=== PATIENT | female | born 1940 | race Caucasian/White ===

== ENCOUNTER → 2016-06-24 | Outpatient (CLI) | payer MEDICARE ==
[2016-06-24 19:10] LABS: MEAN CORPUSCULAR HEMOGLOBIN 32.7 pg (27.0-33.0); MEAN CORPUSCULAR HGB CONC 34.1 g/dl (32.0-36.5); MEAN CORPUSCULAR VOLUME 95.9 fl (80.0-96.0); RED CELL DISTRIBUTION WIDTH 14.4 % (11.5-14.5); WHITE BLOOD COUNT 8.4 K/mm3 (4.0-10.0)
[2016-06-24 19:20] LABS: INR 2.42
[2016-06-24 19:22] LABS: ALBUMIN 3.7 GM/DL (3.2-5.2); ALBUMIN/GLOBULIN RATIO 1.32 (1.00-1.93); BILIRUBIN,TOTAL 0.3 MG/DL (0.2-1.0); CALCIUM LEVEL 8.8 MG/DL (8.8-10.2); CREATININE FOR GFR 1.36 MG/DL (0.55-1.02); GLOMERULAR FILTRATION RATE 40.4 (>39); TOTAL PROTEIN 6.5 GM/DL (6.4-8.2)
[2016-06-26 10:23] LABS: FOLATE 19.6 NG/ML (>5.4)
== END ==
LOC: M WUC 10:23
PROVIDERS: ATTEND Nurse Practitioner Family
DX: Z86.711 Personal history of pulmonary embolism (principal); I10 Essential (primary) hypertension; E78.00 Pure hypercholesterolemia, unspecified; E55.9 Vitamin D deficiency, unspecified; E11.9 Type 2 diabetes mellitus without complications

== ENCOUNTER → 2016-08-05 | Outpatient (CLI) | payer MEDICARE ==
[2016-08-05 14:34] LABS: INR 2.81
== END ==
LOC: M WUC 10:48
PROVIDERS: ATTEND Internal Medicine
DX: Z86.711 Personal history of pulmonary embolism (principal)

== ENCOUNTER → 2016-09-09 | Outpatient (CLI) | payer MEDICARE ==
[2016-09-09 18:13] LABS: INR 2.26
[2016-09-09 18:24] LABS: BLOOD UREA NITROGEN 22 MG/DL (7-18); CREATININE FOR GFR 1.25 MG/DL (0.55-1.02); GLOMERULAR FILTRATION RATE 44.5 (>39); GLUCOSE, FASTING 170 MG/DL (83-110)
[2016-09-09 18:25] LABS: ALBUMIN 3.9 GM/DL (3.2-5.2); ALKALINE PHOSPHATASE 86 U/L (45-117); ALT/SGPT 44 U/L (12-78); ANION GAP 9 MEQ/L (8-16); AST/SGOT 40 U/L (15-37); BILIRUBIN,TOTAL 0.4 MG/DL (0.2-1.0); CALCIUM LEVEL 9.8 MG/DL (8.8-10.2); CARBON DIOXIDE LEVEL 27 MEQ/L (21-32); CHLORIDE LEVEL 105 MEQ/L (98-107); CHOLESTEROL LEVEL 147 MG/DL (<200); POTASSIUM SERUM 3.9 MEQ/L (3.5-5.1); SODIUM LEVEL 141 MEQ/L (136-145); TOTAL PROTEIN 6.9 GM/DL (6.4-8.2); TRIGLYCERIDES LEVEL 443 MG/DL (<150)
[2016-09-09 18:56] LABS: MEAN CORPUSCULAR HEMOGLOBIN 32.3 pg (27.0-33.0); MEAN CORPUSCULAR HGB CONC 33.6 g/dl (32.0-36.5); MEAN CORPUSCULAR VOLUME 96.3 fl (80.0-96.0); RED CELL DISTRIBUTION WIDTH 13.4 % (11.5-14.5); WHITE BLOOD COUNT 6.2 K/mm3 (4.0-10.0)
== END ==
LOC: M WUC 10:03
PROVIDERS: ATTEND Nurse Practitioner Family
DX: E78.00 Pure hypercholesterolemia, unspecified (principal); I10 Essential (primary) hypertension; E55.9 Vitamin D deficiency, unspecified; I26.99 Other pulmonary embolism without acute cor pulmonale; Z79.899 Other long term (current) drug therapy

== ENCOUNTER → 2016-10-28 | Outpatient (CLI) | payer MEDICARE ==
[2016-10-28 18:32] LABS: INR 2.3
== END ==
LOC: M WUC 10:47
PROVIDERS: ATTEND Nurse Practitioner Family
DX: Z79.01 Long term (current) use of anticoagulants (principal); Z86.711 Personal history of pulmonary embolism

== ENCOUNTER → 2017-01-15 | Outpatient (CLI) | payer MEDICARE ==
[2017-01-15 13:24] LABS: INR 2.16
== END ==
LOC: M WUC 10:30
PROVIDERS: ATTEND Nurse Practitioner Family
DX: Z79.01 Long term (current) use of anticoagulants (principal)

== ENCOUNTER → 2017-02-06 | Outpatient (CLI) | payer MEDICARE ==
[2017-02-06 18:02] LABS: ALBUMIN 3.8 GM/DL (3.2-5.2); ALBUMIN/GLOBULIN RATIO 1.31 (1.00-1.93); BILIRUBIN,TOTAL 0.4 MG/DL (0.2-1.0); CREATININE FOR GFR 1.43 MG/DL (0.55-1.02); GLOMERULAR FILTRATION RATE 38.1 (>39); POTASSIUM SERUM 3.8 MEQ/L (3.5-5.1); TOTAL PROTEIN 6.7 GM/DL (6.4-8.2)
[2017-02-06 19:00] LABS: MEAN CORPUSCULAR HEMOGLOBIN 32.7 pg (27.0-33.0); MEAN CORPUSCULAR VOLUME 96.1 fl (80.0-96.0); RED CELL DISTRIBUTION WIDTH 13.7 % (11.5-14.5); WHITE BLOOD COUNT 6.3 K/mm3 (4.0-10.0)
== END ==
LOC: M WUC 10:39
PROVIDERS: ATTEND Nurse Practitioner Family
DX: E78.5 Hyperlipidemia, unspecified (principal); I10 Essential (primary) hypertension

== ENCOUNTER → 2017-02-19 | Outpatient (CLI) | payer MEDICARE ==
[2017-02-19 17:59] LABS: INR 2.52
== END ==
LOC: M WUC 10:46
PROVIDERS: ATTEND Internal Medicine Cardiovascular Disease
DX: I48.91 Unspecified atrial fibrillation (principal); E11.9 Type 2 diabetes mellitus without complications; Z79.01 Long term (current) use of anticoagulants

== ENCOUNTER → 2017-06-01 | Outpatient (CLI) | payer MEDICARE ==
[2017-06-01 09:04] LABS: HEMATOCRIT 43.9 % (36.0-47.0); HEMOGLOBIN 15.1 g/dl (12.0-16.0); MEAN CORPUSCULAR HEMOGLOBIN 32.6 pg (27.0-33.0); MEAN CORPUSCULAR HGB CONC 34.4 g/dl (32.0-36.5); MEAN CORPUSCULAR VOLUME 94.8 fl (80.0-96.0); PLATELET COUNT, AUTOMATED 257 10^3/uL (150-450); RED BLOOD COUNT 4.63 10^6/uL (4.00-5.40); RED CELL DISTRIBUTION WIDTH 13.2 % (11.5-14.5); WHITE BLOOD COUNT 6.9 10^3/uL (4.0-10.0)
[2017-06-01 09:24] LABS: ALBUMIN 3.8 GM/DL (3.2-5.2); ALBUMIN/GLOBULIN RATIO 1.23 (1.00-1.93); ALKALINE PHOSPHATASE 61 U/L (45-117); ALT/SGPT 38 U/L (12-78); ANION GAP 7 MEQ/L (8-16); AST/SGOT 41 U/L (7-37); BILIRUBIN,TOTAL 0.4 MG/DL (0.2-1.0); BLOOD UREA NITROGEN 13 MG/DL (7-18); CALCIUM LEVEL 8.8 MG/DL (8.8-10.2); CARBON DIOXIDE LEVEL 31 MEQ/L (21-32); CHLORIDE LEVEL 105 MEQ/L (98-107); CHOLESTEROL LEVEL 152 MG/DL (<200); CPK CREATINE PHOSPHOKINASE 80 U/L (26-192); CREATININE FOR GFR 1.13 MG/DL (0.55-1.02); GLOMERULAR FILTRATION RATE 49.8 (>39); GLUCOSE, FASTING 128 MG/DL (83-110); HDL CHOLESTEROL 38 MG/DL (>40); INR 1.85; LDL CHOLESTEROL 68.6 MG/DL (<100); NON-HDL-C 114 MG/DL; PROTHROMBIN TIME 21.9 SECONDS (12.4-14.5); SODIUM LEVEL 143 MEQ/L (136-145); TOTAL PROTEIN 6.9 GM/DL (6.4-8.2); TRIGLYCERIDES LEVEL 227 MG/DL (<150)
[2017-06-01 09:33] LABS: MALB URINE SIEMENS 10.9 MG/L; MAU/CREAT RATIO 8.1 MCG/MG (0.0-30.0)
[2017-06-01 09:49] LABS: ESTIMATED AVERAGE GLUCOSE 137 MG/DL (60-110); HEMOGLOBIN A1c 6.4 %
== END ==
LOC: M WUC 08:02
DX: D64.9 Anemia, unspecified (principal); I10 Essential (primary) hypertension; E78.5 Hyperlipidemia, unspecified; I48.91 Unspecified atrial fibrillation; E11.9 Type 2 diabetes mellitus without complications
CPT/HCPCS: 82550

== ENCOUNTER → 2017-10-14 | Outpatient (CLI) | payer MEDICARE ==
[2017-10-14 17:29] LABS: INR 2.42; PROTHROMBIN TIME 27.3 SECONDS (12.4-14.5)
== END ==
LOC: M WUC 13:39
DX: Z79.01 Long term (current) use of anticoagulants (principal); Z86.711 Personal history of pulmonary embolism
CPT/HCPCS: 85610

== ENCOUNTER → 2017-12-01 | Outpatient (CLI) | payer MEDICARE ==
[2017-12-01 12:51] LABS: HEMATOCRIT 42.4 % (36.0-47.0); HEMOGLOBIN 14.4 g/dl (12.0-15.5); MEAN CORPUSCULAR HEMOGLOBIN 32.5 pg (27.0-33.0); MEAN CORPUSCULAR VOLUME 95.7 fl (80.0-96.0); PLATELET COUNT, AUTOMATED 218 10^3/uL (150-450); RED BLOOD COUNT 4.43 10^6/uL (4.00-5.40); RED CELL DISTRIBUTION WIDTH 13.3 % (11.5-14.5); WHITE BLOOD COUNT 6.7 10^3/uL (4.0-10.0)
[2017-12-01 13:00] LABS: INR 2.24; PROTHROMBIN TIME 25.2 SECONDS (12.1-14.4)
[2017-12-01 13:06] LABS: ESTIMATED AVERAGE GLUCOSE 140 MG/DL (60-110); HEMOGLOBIN A1c 6.5 %
[2017-12-01 13:08] LABS: ALBUMIN 3.8 GM/DL (3.2-5.2); ALBUMIN/GLOBULIN RATIO 1.36 (1.00-1.93); ALKALINE PHOSPHATASE 67 U/L (45-117); ALT/SGPT 37 U/L (12-78); ANION GAP 7 MEQ/L (8-16); AST/SGOT 32 U/L (7-37); BILIRUBIN,TOTAL 0.4 MG/DL (0.2-1.0); BLOOD UREA NITROGEN 20 MG/DL (7-18); CALCIUM LEVEL 8.6 MG/DL (8.8-10.2); CARBON DIOXIDE LEVEL 28 MEQ/L (21-32); CHLORIDE LEVEL 106 MEQ/L (98-107); CHOLESTEROL LEVEL 155 MG/DL (<200); CHOLESTEROL RISK RATIO 4.696 (<5); CPK CREATINE PHOSPHOKINASE 121 U/L (26-192); CREATININE FOR GFR 1.29 MG/DL (0.55-1.30); FREE T4 0.94 NG/DL (0.76-1.46); GLOMERULAR FILTRATION RATE 42.8 (>39); GLUCOSE, FASTING 123 MG/DL (70-100); HDL CHOLESTEROL 33 MG/DL (>40); LDL CHOLESTEROL 72.6 MG/DL (<100); NON-HDL-C 122 MG/DL; POTASSIUM SERUM 4.7 MEQ/L (3.5-5.1); SODIUM LEVEL 141 MEQ/L (136-145); TOTAL PROTEIN 6.6 GM/DL (6.4-8.2); TRIGLYCERIDES LEVEL 247 MG/DL (<150)
[2017-12-01 13:29] LABS: CREATININE, URINE 68.3 MG/DL; MALB URINE SIEMENS 8.2 MG/L
== END ==
LOC: M WUC 11:03
DX: Z86.711 Personal history of pulmonary embolism (principal); E78.00 Pure hypercholesterolemia, unspecified; E11.9 Type 2 diabetes mellitus without complications; I10 Essential (primary) hypertension
CPT/HCPCS: 82550

== ENCOUNTER → 2018-02-19 | Outpatient (CLI) | payer MEDICARE ==
[2018-02-19 13:21] LABS: INR 1.79; PROTHROMBIN TIME 21.1 SECONDS (12.1-14.4)
== END ==
LOC: M WUC 10:21
DX: Z79.01 Long term (current) use of anticoagulants (principal); Z86.711 Personal history of pulmonary embolism
CPT/HCPCS: 85610

== ENCOUNTER → 2018-03-09 | Outpatient (CLI) | payer MEDICARE ==
[2018-03-09 20:11] LABS: HEMATOCRIT 43.2 % (36.0-47.0); HEMOGLOBIN 14.6 g/dl (12.0-15.5); MEAN CORPUSCULAR HEMOGLOBIN 32.9 pg (27.0-33.0); MEAN CORPUSCULAR HGB CONC 33.8 g/dl (32.0-36.5); MEAN CORPUSCULAR VOLUME 97.3 fl (80.0-96.0); PLATELET COUNT, AUTOMATED 235 10^3/uL (150-450); RED BLOOD COUNT 4.44 10^6/uL (4.00-5.40); RED CELL DISTRIBUTION WIDTH 13.2 % (11.5-14.5)
[2018-03-09 20:13] LABS: CREATININE, URINE 25.6 MG/DL; MALB URINE SIEMENS < 5.0 MG/L
[2018-03-09 20:19] LABS: MAU/CREAT RATIO 19.5 MCG/MG (0.0-30.0)
[2018-03-09 20:35] LABS: ESTIMATED AVERAGE GLUCOSE 131 MG/DL (60-110); HEMOGLOBIN A1c 6.2 %
[2018-03-09 20:39] LABS: ALBUMIN 3.8 GM/DL (3.2-5.2); ALBUMIN/GLOBULIN RATIO 1.15 (1.00-1.93); ALKALINE PHOSPHATASE 66 U/L (45-117); ALT/SGPT 28 U/L (12-78); ANION GAP 10 MEQ/L (8-16); AST/SGOT 28 U/L (7-37); BILIRUBIN,TOTAL 0.4 MG/DL (0.2-1.0); BLOOD UREA NITROGEN 22 MG/DL (7-18); CALCIUM LEVEL 8.6 MG/DL (8.8-10.2); CARBON DIOXIDE LEVEL 27 MEQ/L (21-32); CHLORIDE LEVEL 103 MEQ/L (98-107); CHOLESTEROL LEVEL 161 MG/DL (<200); CPK CREATINE PHOSPHOKINASE 116 U/L (26-192); CREATININE FOR GFR 1.29 MG/DL (0.55-1.30); GLOMERULAR FILTRATION RATE 42.8 (>39); GLUCOSE, FASTING 92 MG/DL (70-100); HDL CHOLESTEROL 35 MG/DL (>40); LDL CHOLESTEROL 56 MG/DL (<100); NON-HDL-C 126 MG/DL; POTASSIUM SERUM 4.4 MEQ/L (3.5-5.1); SODIUM LEVEL 140 MEQ/L (136-145); TOTAL PROTEIN 7.1 GM/DL (6.4-8.2); TRIGLYCERIDES LEVEL 348 MG/DL (<150)
== END ==
LOC: M WUC 12:04
DX: I10 Essential (primary) hypertension (principal); E11.9 Type 2 diabetes mellitus without complications; E78.00 Pure hypercholesterolemia, unspecified
CPT/HCPCS: 82550

== ENCOUNTER → 2018-08-22 | Outpatient (CLI) | payer MEDICARE ==
[2018-08-22 13:25] LABS: ALBUMIN 3.7 GM/DL (3.2-5.2); BILIRUBIN,TOTAL 0.4 MG/DL (0.2-1.0); CALCIUM LEVEL 9.1 MG/DL (8.8-10.2); CHOLESTEROL RISK RATIO 5.121 (<5); CREATININE FOR GFR 1.16 MG/DL (0.55-1.30); FREE T4 1.1 NG/DL (0.76-1.46); GLOMERULAR FILTRATION RATE 48.2 (>39); POTASSIUM SERUM 4.2 MEQ/L (3.5-5.1); THYROID STIMULATING HORMONE 1.97 uIU/ML (0.358-3.740); TOTAL PROTEIN 6.6 GM/DL (6.4-8.2)
[2018-08-22 13:39] LABS: HEMOGLOBIN A1c 6.5 %
[2018-08-22 14:49] LABS: BASO # 0.1 10^3/uL (0.0-0.2); BASO % 1.3 % (0.0-1.0); EOS # 0.3 10^3/uL (0.0-0.50); EOS % 5.6 % (0.0-3.0); HEMATOCRIT 43.1 % (36.0-47.0); HEMOGLOBIN 14.7 g/dl (12.0-15.5); LYMPH # 1.7 10^3/uL (1.5-4.5); LYMPH % 29.9 % (24.0-44.0); MEAN CORPUSCULAR HEMOGLOBIN 33.6 pg (27.0-33.0); MEAN CORPUSCULAR HGB CONC 34.1 g/dl (32.0-36.5); MEAN CORPUSCULAR VOLUME 98.4 fl (80.0-96.0); MONO # 0.5 10^3/uL (0.0-0.8); MONO % 8.1 % (0.0-5.0); NEUTROPHILS % 54.6 % (36.0-66.0); PLATELET COUNT, AUTOMATED 224 10^3/uL (150-450); RED BLOOD COUNT 4.38 10^6/uL (4.00-5.40); WHITE BLOOD COUNT 5.6 10^3/uL (4.0-10.0)
== END ==
LOC: M WUC 08:29
PROVIDERS: ATTEND Physician Assistant Medical
DX: R53.83 Other fatigue (principal); I10 Essential (primary) hypertension; E78.2 Mixed hyperlipidemia; E11.9 Type 2 diabetes mellitus without complications

== ENCOUNTER 2018-11-06 17:43 | Emergency (ER) | payer MEDICARE ==
[~2018-11-06] VITALS: Ht 157.5 cm; Wt 95.0 kg
[2018-11-06 18:13] LABS: BASO % 0.5 % (0.0-1.0); EOS # 0.1 10^3/uL (0.0-0.50); EOS % 1.8 % (0.0-3.0); HEMATOCRIT 42.9 % (36.0-47.0); LYMPH # 1.8 10^3/uL (1.5-4.5); LYMPH % 23.2 % (24.0-44.0); MEAN CORPUSCULAR HEMOGLOBIN 35.1 pg (27.0-33.0); MEAN CORPUSCULAR VOLUME 100.5 fl (80.0-96.0); MONO # 0.6 10^3/uL (0.0-0.8); MONO % 8.3 % (0.0-5.0); NEUTROPHILS % 65.5 % (36.0-66.0); PLATELET COUNT, AUTOMATED 221 10^3/uL (150-450); RED BLOOD COUNT 4.27 10^6/uL (4.00-5.40); WHITE BLOOD COUNT 7.6 10^3/uL (4.0-10.0)
--- NOTE | 2018-11-06 18:19 | REP ---
Chest one-view HISTORY: Chest pain Comparison: None The lungs are clear. The heart is normal in size. The pulmonary vasculature is normal in appearance. Impression: No acute disease. Electronically Signed by Cleveland Wilkerson MD 11/06/2018 06:10 P
[2018-11-06 18:23] LABS: INR 1.23; PROTHROMBIN TIME 15.7 SECONDS (12.1-14.4)
[2018-11-06] MEDS ORDERED: KETOROLAC 30 MG/ML VIAL (J1885) IM ONE (18:30)
[2018-11-06] MEDS ORDERED: diazePAM 10 MG TAB PO ONE (18:30)
[2018-11-06] MEDS ORDERED: SOMA350T PO (18:37)
[2018-11-06] MEDS ORDERED: NAPR-837 PO (18:37)
--- NOTE | 2018-11-06 18:39 | ECGEPIP ---
[facility] - ED Test Date: 2018-11-06 Pat Name: IDRIS KHANNA Department: Room: - Gender: Female Manager Voice: JTheron : [id number] Requested By: Halle Reyes Order Number: [id number] Reading MD: Halle Reyes Measurements Intervals [place] Rate: 96 P: 35 CA: 165 QRS: 16 QRSD: 85 T: 34 QT: 359 QTc: 456 Interpretive Statements SINUS RHYTHM NSTTW abnormalities NO PRIOR FOR COMPARISON Electronically Signed on 11-06-2018 18:38:40 EDT by Halle Reyes
[2018-11-06] MEDS ORDERED: KETOROLAC 30 MG/ML VIAL (J1885) IV ONE (18:45)
[2018-11-06 18:49] LABS: ALBUMIN 3.9 GM/DL (3.2-5.2); ALT/SGPT 31 U/L (12-78); BILIRUBIN,DIRECT 0.2 MG/DL (0.0-0.2); BILIRUBIN,TOTAL 0.5 MG/DL (0.2-1.0); BLOOD UREA NITROGEN 17 MG/DL (7-18); CALCIUM LEVEL 9.1 MG/DL (8.8-10.2); CARBON DIOXIDE LEVEL 32 MEQ/L (21-32); CHLORIDE LEVEL 99 MEQ/L (98-107); CK-MB VALUE MASS 1.8 NG/ML (<3.6); CPK CREATINE PHOSPHOKINASE 106 U/L (26-192); CREATININE FOR GFR 1.46 MG/DL (0.55-1.30); FREE T4 1.26 NG/DL (0.76-1.46); GLUCOSE, FASTING 122 MG/DL (70-100); LIPASE 97 U/L (73-393); NT-PRO BNP 351 PG/ML (<450); POTASSIUM SERUM 4.1 MEQ/L (3.5-5.1); SODIUM LEVEL 138 MEQ/L (136-145); TOTAL PROTEIN 7.1 GM/DL (6.4-8.2); TROPONIN I < 0.02 NG/ML (< 0.10)
[2018-11-06 19:23] VITALS: BP 158/74
== END 2018-11-06 19:24 | disposition home or self-care (01) ==
LOC: M ED 17:43
DX: M54.12 Radiculopathy, cervical region (principal); G62.9 Polyneuropathy, unspecified; I51.9 Heart disease, unspecified; I10 Essential (primary) hypertension; Z72.0 Tobacco use
CPT/HCPCS: 71045; 80048; 80076; 82550; 82553; 83690; 83880; 84439; 84443; 84484; 85025; 85610; 93005; 93041; 94760; 96374; 99284; J1885

== ENCOUNTER → 2019-03-01 | Outpatient (CLI) | payer MEDICARE ==
[~2019-03-01] MED LIST: NAPR-837 PO; SOMA350T PO
[2019-03-01 18:11] LABS: BASO # 0.1 10^3/uL (0.0-0.2); BASO % 0.7 % (0.0-1.0); EOS # 0.2 10^3/uL (0.0-0.5); EOS % 3.5 % (0.0-3.0); HEMATOCRIT 44.1 % (36.0-47.0); HEMOGLOBIN 14.4 g/dl (12.0-15.5); LYMPH # 1.6 10^3/uL (1.5-5.0); LYMPH % 23.7 % (24.0-44.0); MEAN CORPUSCULAR HEMOGLOBIN 33.2 pg (27.0-33.0); MEAN CORPUSCULAR HGB CONC 32.7 g/dl (32.0-36.5); MEAN CORPUSCULAR VOLUME 101.6 fl (80.0-96.0); MONO # 0.5 10^3/uL (0.0-0.8); MONO % 6.8 % (0.0-5.0); NEUTROPHILS # 4.5 10^3/uL (1.5-8.5); PLATELET COUNT, AUTOMATED 222 10^3/uL (150-450); RED BLOOD COUNT 4.34 10^6/uL (4.00-5.40); WHITE BLOOD COUNT 6.9 10^3/uL (4.0-10.0)
[2019-03-01 18:20] LABS: ALBUMIN 3.5 GM/DL (3.2-5.2); BILIRUBIN,TOTAL 0.4 MG/DL (0.2-1.0); CALCIUM LEVEL 8.8 MG/DL (8.8-10.2); CHOLESTEROL RISK RATIO 2.953 (<5); CREATININE FOR GFR 1.27 MG/DL (0.55-1.30); FREE T4 0.95 NG/DL (0.76-1.46); GLOMERULAR FILTRATION RATE 43.4 (>39); POTASSIUM SERUM 4.1 MEQ/L (3.5-5.1); THYROID STIMULATING HORMONE 1.79 uIU/ML (0.358-3.740); TOTAL PROTEIN 6.5 GM/DL (6.4-8.2)
[2019-03-01 19:02] LABS: HEMOGLOBIN A1c 6.4 %
== END ==
LOC: M WUC 11:05
PROVIDERS: ATTEND Physician Assistant Medical
DX: E11.9 Type 2 diabetes mellitus without complications (principal); I10 Essential (primary) hypertension; E78.2 Mixed hyperlipidemia; E55.9 Vitamin D deficiency, unspecified; R53.83 Other fatigue

== ENCOUNTER 2021-04-13 17:36 | Inpatient (IN) | payer MEDICARE ==
[~2021-04-13] VITALS: Ht 134.6 cm; Wt 100.0 kg
[2021-04-13] VITALS (12 sets, daily range): BP systolic 80–131; BP diastolic 41–60
[2021-04-13] MEDS ORDERED: NS 1,000 ML IV ONE ×3 (17:55→23:00)
[2021-04-13] MEDS ORDERED: ACETAMINOPHEN 325 MG SUPP PR ONE (17:55)
[2021-04-13] MEDS ORDERED: ACETAMINOPHEN 650 MG SUPP PR ONE (17:55)
[2021-04-13 18:17] LABS: ABG BASE EXCESS -2.6 (-2.0-2.0); ABG HCO3 21.1 MEQ/L (22.0-26.0); ABG O2 SATURATION 98.7 % (95.0-99.0); ABG PARTIAL PRESSURE CO2 33.3 mmHg (35.0-45.0); ABG PARTIAL PRESSURE O2 131.7 mmHg (75.0-100.0); ABG STANDARD HCO3 22.4 MEQ/L (22.0-26.0); ABG TOTAL CO2 22.1 MEQ/L (23.0-31.0)
[2021-04-13] MEDS ORDERED: cefTRIAXone SOD 2 GM in D5W MINI-BAG PLUS 50 ML IV ONE (18:45)
[2021-04-13 19:00] LABS: BASO % 0.2 % (0.0-1.0); EOS % 0.1 % (0.0-3.0); HEMATOCRIT 36.9 % (36.0-47.0); HEMOGLOBIN 12.2 g/dl (12.0-15.5); LYMPH # 0.4 10^3/uL (1.5-5.0); LYMPH % 2.6 % (24.0-44.0); MEAN CORPUSCULAR HEMOGLOBIN 31.9 pg (27.0-33.0); MEAN CORPUSCULAR HGB CONC 33.1 g/dl (32.0-36.5); MEAN CORPUSCULAR VOLUME 96.6 fl (80.0-96.0); MONO # 0.4 10^3/uL (0.0-0.8); MONO % 2.2 % (2.0-8.0); NEUTROPHILS # 15.1 10^3/uL (1.5-8.5); NEUTROPHILS % 93.8 % (36.0-66.0); PLATELET COUNT, AUTOMATED 262 10^3/uL (150-450); RED BLOOD COUNT 3.82 10^6/uL (4.00-5.40); WHITE BLOOD COUNT 16.1 10^3/uL (4.0-10.0)
--- NOTE | 2021-04-13 19:01 | REP ---
INDICATION: Coronavirus workup COMPARISON: 11/06/2018 TECHNIQUE: Portable AP view of the chest FINDINGS: The mediastinum and cardiac silhouette are stable and within normal limits for portable technique. The lung zarco demonstrate chronic changes without acute consolidation, effusion, or pneumothorax. Skeletal structures are intact. IMPRESSION: No acute cardiopulmonary process appreciated. <Electronically signed by Ajay Cintron > 04/13/21 0726
[2021-04-13 19:13] LABS: INR 1.88
[2021-04-13 19:16] LABS: D-DIMER QUANT 1196.18 ng/ml (<500)
[2021-04-13 19:23] LABS: ALBUMIN 2.6 GM/DL (3.2-5.2); BILIRUBIN,TOTAL 0.9 MG/DL (0.2-1.0); C REACTIVE PROTEIN QUANTITATIV 8.58 MG/DL (0.00-0.30); CALCIUM LEVEL 8.1 MG/DL (8.8-10.2); CREATININE FOR GFR 1.71 MG/DL (0.55-1.30); GLOMERULAR FILTRATION RATE 30.7 (>39); MAGNESIUM LEVEL 1.5 MG/DL (1.8-2.4); POTASSIUM SERUM 3.8 MEQ/L (3.5-5.1); TOTAL PROTEIN 5.9 GM/DL (6.4-8.2)
[2021-04-13 19:24] LABS: CK-MB VALUE MASS < 1.0 NG/ML (<3.6); CPK CREATINE PHOSPHOKINASE 91 U/L (26-192); TROPONIN I < 0.02 NG/ML (< 0.10)
--- OUTSIDE RECORDS SUMMARY | 2021-04-13 19:50 | CCD | Continuity of Care Document ---
Author Author Sapphire MERCADO A Organization Unknown Address [address] [place] [address] Phone [phone] Care Team Providers Care Deaf Interpreter Name Role Phone JEVON MERCADO AUTM [phone] Social History Type Date Description Comments Sex Unknown Immunizations CPT Code Status Date Vaccine Lot # [id number] Given 03/26/2006 Flu Injection Procedures Date Code Description Status 01/06/2021 79255 Office/Outpatient Established Lo w MDM 20-29 Min Completed 09/30/2020 61768 Office/Outpatient Established Lo w MDM 20-29 Min Completed Encounters Type Date Location Provider Dx Diagnosis Office Visit 01/06/2021 10:00a [facility] AMBIKA Esqueda I10 Essential (primary) hyperten omero E11.9 Type 2 diabetes mellitus wit hout complications E78.5 Hyperlipidemia, unspecified F41.9 Anxiety disorder, unspecifie d Office Visit 09/30/2020 10:00a [facility] AMBIKA Esqueda I10 Essential (primary) hyperten omero E11.9 Type 2 diabetes mellitus wit hout complications E78.5 Hyperlipidemia, unspecified Assessments Date Code Description Provider 01/06/2021 I10 Essential (primary) hypertension AMBIKA Louis 01/06/2021 E11.9 Type 2 diabetes mellitus without complications AMBIKA Louis 01/06/2021 E78.5 Hyperlipidemia, unspecified AMBIKA Mcdonald 01/06/2021 F41.9 Anxiety disorder, unspecified AMBIKA Seymour 09/30/2020 I10 Essential (primary) hypertension AMBIKA Louis 09/30/2020 E11.9 Type 2 diabetes mellitus without complications AMBIKA Louis 09/30/2020 E78.5 Hyperlipidemia, unspecified Ishmael AMBIKA Dickens Plan of Treatment Future Appointment(s):* 03/31/2021 10:00 am - AMBIKA Louis at [facility]
--- OUTSIDE RECORDS SUMMARY | 2021-04-13 19:50 | CCD ---
Author Author [facility] Organization [facility] Address Unknown Phone Unavailable Care Team Providers Care Tooling [employer] Tech Name Role Phone TONTARSKI, G JEVON PA Unavailable Unavailable TONTARSKI, G JEVON PA Unavailable Unavailable TONTARSKI, G JEVON PA Unavailable Unavailable TONTARSKI, G JEVON PA Unavailable Unavailable TONTARSKI, G JEVON PA Unavailable Unavailable TONTARSKI, G JEVON PA Unavailable Unavailable TONTARSKI, G JEVON PA Unavailable Unavailable TONTARSKI, G JEVON PA Unavailable Unavailable TONTARSKI, G JEVON PA Unavailable Unavailable TONTARSKI, G JEVON PA Unavailable Unavailable TONTARSKI, G JEVON PA Unavailable Unavailable TONTARSKI, G JEVON PA Unavailable Unavailable TONTARSKI, G JEVON PA Unavailable Unavailable TONTARSKI, G JEVON PA Unavailable Unavailable TONTARSKI, G JEVON PA Unavailable Unavailable TONTARSKI, G JEVON PA Unavailable Unavailable TONTARSKI, G JEVON PA Unavailable Unavailable TONTARSKI, G JEVON PA Unavailable Unavailable TONTARSKI, G JEVON PA Unavailable Unavailable TONTARSKI, G JEVON PA Unavailable Unavailable TONTARSKI, G JEVON PA Unavailable Unavailable TONTARSKI, G JEVON PA Unavailable Unavailable TONTARSKI, G JEVON PA Unavailable Unavailable TONTARSKI, G JEVON PA Unavailable Unavailable TONTARSKI, G JEVON PA Unavailable Unavailable TONTARSKI, G JEVON PA Unavailable Unavailable TONTARSKI, G JEVON PA Unavailable Unavailable TONTARSKI, G JEVON PA Unavailable Unavailable TONTARSKI, G JEVON PA Unavailable Unavailable TONTARSKI, G JEVON PA Unavailable Unavailable TONTARSKI, G JEVON PA Unavailable Unavailable TONTARSKI, G JEVON PA Unavailable Unavailable TONTARSKI, G JEVON PA Unavailable Unavailable TONTARSKI, G JEVON PA Unavailable Unavailable TONTARSKI, G JEVON PA Unavailable Unavailable TONTARSKI, G JEVON PA Unavailable Unavailable TONTARSKI, G JEVON PA Unavailable Unavailable TONTARSKI, G JEVON PA Unavailable Unavailable TONTARSKI, G JEVON PA Unavailable Unavailable TONTARSKI, G JEVON PA Unavailable Unavailable TONTARSKI, G JEVON PA Unavailable Unavailable TONTARSKI, G JEVON PA Unavailable Unavailable TONTARSKI, G JEVON PA Unavailable Unavailable TONTARSKI, G JEVON PA Unavailable Unavailable TONTARSKI, G JEVON PA Unavailable Unavailable TONTARSKI, G JEVON PA Unavailable Unavailable TONTARSKI, G JEVON PA Unavailable Unavailable TONTARSKI, G JEVON PA Unavailable Unavailable Re-disclosure Warning The records that you are about to access may contain information from federally-assisted alcohol or drug abuse programs. If such information is present, then the following federally mandated warning applies: This information has been disclosed to you from records protected by federal confidentiality rules (42 CFR part 2). The federal rules prohibit you from making any further disclosure of this information unless further disclosure is expressly permitted by the written consent of the person to whom it pertains or as otherwise permitted by 42 CFR part 2. A general authorization for the release of medical or other information is NOT sufficient for this purpose. The Federal rules restrict any use of the information to criminally investigate or prosecute any alcohol or drug abuse patient.The records that you are about to access may contain highly sensitive health information, the redisclosure of which is protected by Article 27-F of the [facility] Public Health law. If you continue you may have access to information: Regarding HIV / AIDS; Provided by facilities licensed or operated by the [facility] Office of Mental Health; or Provided by the [facility] Office for People With Developmental Disabilities. If such information is present, then the following [facility] mandated warning applies: This information has been disclosed to you from confidential records which are protected by state law. State law prohibits you from making any further disclosure of this information without the specific written consent of the person to whom it pertains, or as otherwise permitted by law. Any unauthorized further disclosure in violation of state law may result in a fine or detention sentence or both. A general authorization for the release of medical or other information is NOT sufficient authorization for further disc losure. Family History Family Member Name Family Member Gender Family Member Status Date o f Status Description Data Source(s) Unknown Male Problem [facility] ([facility]) Encounters Encounter Providers Location Date Indications Data Source(s ) Outpatient Attender: [facility] 01/06/2021 10:00:00 AM EDT [facility] (Philippe Carmichael MD) Outpatient Attender: JEVON APPLE [facility] 09/30/2020 10:00:00 AM EDT [facility] (Philippe Carmichael MD) Immunizations Vaccine Date Status Description Data Source(s) COVID-19 VACCINE Moderna 02/03/2021 12:00:00 AM EDT completed ORSIIS Vaccine Series Complete: YESThis Data wa s Submitted to [facility]. COVID-19 VACCINE Moderna 01/06/2021 12:00:00 AM EDT completed NYSIIS Vaccine Series Complete: NOThis Data was Submitted to [facility] [employer]. Medications Medication Brand Name Start Date Product Form Dose Route Admi nistrative Instructions Pharmacy Instructions Status Indications Reaction Description Data Source(s) Alprazolam 0.25 MG Oral Tablet ALPRAZOLAM 04/05/2021 12:00:00 AM EST t ablet 6 TAKE ONE TABLET BY MOUTH TWICE A DAY NEEDED, MAXIMUM DAILY DOSE = 2 TABLETS TAKE ONE TABLET BY MOUTH TWICE A DAY NEEDED, MAXIMUM DAILY DOSE = 2 TABLETS SOLD: 04/06/2021 [facility] Rosuvastatin calcium 20 MG Oral Tablet ROSUVASTATIN CALCIUM 03/29/2021 12:00:00 AM EDT tablet 90 TAKE ONE TABLET BY MOUTH POLY RY DAY TAKE ONE TABLET BY MOUTH EVERY DAY SOLD: 03/31/2021 [facility] 100 mg 03/25/2021 12:00:00 AM EDT tablet 90 TAKE ONE TABLET BY MOUTH EVERY DAY TAKE ONE TABLET BY MOUTH EVERY DAY SOLD: 03/31/2021 [facility] Fenofibrate 200 MG Oral Capsule FENOFIBRATE,MICRONIZED 03/25 12:00:00 AM EDT capsule 90 TAKE ONE CAPSULE BY MOUTH EV GRAYSON DAY TAKE ONE CAPSULE BY MOUTH EVERY DAY SOLD: 03/31/2021 [facility] 100 mg 03/25/2021 12:00:00 AM EDT tablet extended release 24 hr 90 TAKE ONE TABLET BY MOUTH EVERY DAY TAKE ONE TABLET BY MOUTH EVERY DAY SOLD: 03/31/2021 [facility] 500 mg 03/25/2021 12:00:00 AM EDT tablet extended release 24 hr 180 TAKE ONE TABLET BY MOUTH TWICE A DAY TAKE ONE TABLET BY MOUTH TWICE A DAY SOLD: 03/31/2021 [facility] 10 mg 03/25/2021 12:00:00 AM EDT tablet extended release 24hr 90 TAKE ONE TABLET BY MOUTH EVERY DAY TAKE ONE TABLET BY MOUTH EVERY DAY SOLD: 03/31/2021 [facility] 8 mg 03/25/2021 12:00:00 AM EDT tablet 90 TAKE ONE TABLET BY MOUTH AT BEDTIME TAKE ONE TABLET BY MOUTH AT BEDTIME SOLD: 03/31/2021 [facility] Trazodone Hydrochloride 100 MG Oral Tablet TRAZODONE HCL 03/25/2021 12:00:00 AM EDT tablet 90 TAKE ONE TABLET BY MOUTH AT BEDTIME TAKE ONE TABLET BY MOUTH AT BEDTIME SOLD: 03/31/2021 [facility] 10 mg 03/25/2021 12:00:00 AM EDT tablet 90 TAKE ONE TABLET BY MOUTH EVERY DAY TAKE ONE TABLET BY MOUTH EVERY DAY SOLD: 03/31/2021 [facility] 20 mEq 03/25/2021 12:00:00 AM EDT tablet extended release 90 TAKE ONE TABLET BY MOUTH EVERY DAY TAKE ONE TABLET BY MOUTH EVERY DAY SOLD: 03/31/2021 [facility] 20 mg 03/25/2021 12:00:00 AM EDT tablet 180 TAKE TWO TABLETS BY MOUTH EVERY DAY TAKE TWO TABLETS BY MOUTH EVERY DAY SOLD: 03/31/2021 [facility] 1,250 mcg (50,000 unit) 03/25/2021 12:00:00 AM EDT capsule 13 TAKE ONE CAPSULE BY MOUTH EVERY WEEK TAKE ONE CAPSULE BY MOUTH EVERY WEEK SOLD: 03/31/2021 [facility] Alprazolam 0.25 MG Oral Tablet ALPRAZOLAM 02/22/2021 12:00:00 AM EDT tablet 60 TAKE ONE TABLET BY MOUTH TWICE A DAY NEEDED MAXIMUM DAILY DOSE = 2 TABLETS TAKE ONE TABLET BY MOUTH TWICE A DAY NEEDED MAXIMUM DAILY DOSE = 2 TABLETS SOLD: 02/23/2021 [facility] 300 mg 01/07/2021 12:00:00 AM EDT capsule 90 TAKE ONE CAPSULE BY MOUTH THREE TIMES A DAY TAKE ONE CAPSULE BY MOUTH THREE TIMES A DAY SOLD: 01/09/2021 [facility] 0.5 mg 01/07/2021 12:00:00 AM EDT tablet 90 TAKE ONE TABLET BY MOUTH THREE TIMES A DAY TAKE ONE TABLET BY MOUTH THREE TIMES A DAY SOLD: 01/09/2021 [facility] 30 ACTUAT umeclidinium 0.0625 MG/ACTUAT / vilanterol 0.025 MG/ACTUAT Dry Powder Inhaler [Anoro] 62.5-25 mcg/actuation UMECLIDINIUM BRM/VILANTEROL TR 01/07/2021 12:00:00 AM EDT blister with device 60 INHALE ONE PUFF BY MOUTH EVERY DAY INHALE ONE PUFF BY MOUTH EVERY DAY SOLD: 01/09/2021 [facility] 0.5 mg 01/07/2021 12:00:00 AM EDT tablet 90 TAKE ONE TABLET BY MOUTH THREE TIMES A DAY TAKE ONE TABLET BY MOUTH THREE TIMES A DAY SOLD: 03/10/2021 [facility] 300 mg 01/07/2021 12:00:00 AM EDT capsule 90 TAKE ONE CAPSULE BY MOUTH THREE TIMES A DAY TAKE ONE CAPSULE BY MOUTH THREE TIMES A DAY SOLD: 03/24/2021 [facility] Alprazolam 0.25 MG Oral Tablet ALPRAZOLAM 01/05/2021 12:00:00 AM EDT tablet 60 TAKE ONE TABLET BY MOUTH TWICE A DAY NEEDED MAXIMUM DAILY DOSE = 2 TAKE ONE TABLET BY MOUTH TWICE A DAY NEEDED MAXIMUM DAILY DOSE = 2 SOLD: 01/06/2021 [facility] Fenofibrate 200 MG Oral Capsule FENOFIBRATE,MICRONIZED 12/11 12:00:00 AM EDT capsule 90 TAKE ONE CAPSULE BY MOUTH EV GRAYSON DAY TAKE ONE CAPSULE BY MOUTH EVERY DAY SOLD: 12/12/2020 [facility] 24 HR Metformin hydrochloride 500 MG Extended Release Oral T ablet METFORMIN HCL 12/10/2020 12:00:00 AM EDT tablet extended release 24 hr 180 TAKE ONE TABLET BY MOUTH TWICE A DAY TAKE ONE TABLET BY MOUTH TWICE A DAY SOLD: 12/12/2020 [facility] 0.5 mg 12/10/2020 12:00:00 AM EDT tablet 180 TAKE ONE TABLET BY MOUTH TWICE A DAY TAKE ONE TABLET BY MOUTH TWICE A DAY SOLD: 12/12/2020 [facility] 0.5 mg 12/10/2020 12:00:00 AM EDT tablet 180 TAKE ONE TABLET BY MOUTH TWICE A DAY TAKE ONE TABLET BY MOUTH TWICE A DAY SOLD: 03/31/2021 [facility] 10 mg 12/10/2020 12:00:00 AM EDT tablet extended release 24hr 90 TAKE ONE TABLET BY MOUTH EVERY DAY TAKE ONE TABLET BY MOUTH EVERY DAY SOLD: 12/12/2020 [facility] 100 mg 12/10/2020 12:00:00 AM EDT tablet 90 TAKE ONE TABLET BY MOUTH EVERY DAY TAKE ONE TABLET BY MOUTH EVERY DAY SOLD: 12/12/2020 [facility] 100 mg 12/09/2020 12:00:00 AM EDT tablet extended release 24 hr 90 TAKE ONE TABLET BY MOUTH EVERY DAY TAKE ONE TABLET BY MOUTH EVERY DAY SOLD: 12/12/2020 [facility] Escitalopram 20 MG Oral Tablet ESCITALOPRAM OXALATE 12/09/2020 1 2:00:00 AM EDT tablet 90 TAKE ONE TABLET BY MOUTH EVERY D AY TAKE ONE TABLET BY MOUTH EVERY DAY SOLD: 03/31/2021 [facility] 8 mg 12/09/2020 12:00:00 AM EDT tablet 90 TAKE ONE TABLET BY MOUTH AT BEDTIME TAKE ONE TABLET BY MOUTH AT BEDTIME SOLD: 12/12/2020 [facility] Escitalopram 20 MG Oral Tablet ESCITALOPRAM OXALATE 12/09/2020 1 2:00:00 AM EDT tablet 90 TAKE ONE TABLET BY MOUTH EVERY D AY TAKE ONE TABLET BY MOUTH EVERY DAY SOLD: 12/12/2020 [facility] 10 mg 12/09/2020 12:00:00 AM EDT tablet 90 TAKE ONE TABLET BY MOUTH EVERY DAY TAKE ONE TABLET BY MOUTH EVERY DAY SOLD: 12/12/2020 [facility] Rosuvastatin calcium 20 MG Oral Tablet ROSUVASTATIN CALCIUM 12/09/2020 12:00:00 AM EDT tablet 90 TAKE ONE TABLET BY MOUTH POLY DAY TAKE ONE TABLET BY MOUTH EVERY DAY SOLD: 12/12/2020 [facility] 20 mg 12/09/2020 12:00:00 AM EDT tablet 180 TAKE TWO TABLETS BY MOUTH EVERY DAY TAKE TWO TABLETS BY MOUTH EVERY DAY SOLD: 12/12/2020 [facility] 1,250 mcg (50,000 unit) 12/09/2020 12:00:00 AM EDT capsule 13 TAKE ONE CAPSULE BY MOUTH EVERY WEEK TAKE ONE CAPSULE BY MOUTH EVERY WEEK SOLD: 12/12/2020 [facility] 20 mEq 12/09/2020 12:00:00 AM EDT tablet extended release 90 TAKE ONE TABLET BY MOUTH EVERY DAY TAKE ONE TABLET BY MOUTH EVERY DAY SOLD: 12/12/2020 [facility] 100 mg 12/05/2020 12:00:00 AM EDT tablet 90 TAKE ONE TABLET BY MOUTH AT BEDTIME TAKE ONE TABLET BY MOUTH AT BEDTIME SOLD: 12/05/2020 [facility] 0.5 mg 12/01/2020 12:00:00 AM EDT tablet 26 TAKE ONE TABLET BY MOUTH TWICE A DAY TAKE ONE TABLET BY MOUTH TWICE A DAY SOLD: 12/01/2020 [facility] Alprazolam 0.25 MG Oral Tablet ALPRAZOLAM 11/15/2020 12:00:00 AM EDT tablet 60 TAKE ONE TABLET BY MOUTH TWICE A DAY NEEDED MAXIMUM DAILY DOSE = 2 TAKE ONE TABLET BY MOUTH TWICE A DAY NEEDED MAXIMUM DAILY DOSE = 2 SOLD: 11/17/2020 [facility] 10 mg 10/05/2020 12:00:00 AM EDT tablet 69 TAKE ONE TABLET BY MOUTH EVERY DAY TAKE ONE TABLET BY MOUTH EVERY DAY SOLD: 10/07/2020 [facility] 10 mg 10/05/2020 12:00:00 AM EDT tablet extended release 24hr 69 TAKE ONE TABLET BY MOUTH EVERY DAY TAKE ONE TABLET BY MOUTH EVERY DAY SOLD: 10/07/2020 [facility] 20 mEq 10/05/2020 12:00:00 AM EDT tablet extended release 69 TAKE ONE TABLET BY MOUTH EVERY DAY TAKE ONE TABLET BY MOUTH EVERY DAY SOLD: 10/07/2020 [facility] 500 mg 10/05/2020 12:00:00 AM EDT tablet extended release 24 hr 138 TAKE ONE TABLET BY MOUTH TWICE A DAY TAKE ONE TABLET BY MOUTH TWICE A DAY SOLD: 10/07/2020 [facility] Alprazolam 0.25 MG Oral Tablet ALPRAZOLAM 10/01/2020 12:00:00 AM EDT tablet 60 TAKE ONE TABLET BY MOUTH TWICE A DAY NEEDED, [employer] DAILY DOSE = 2 TABLETS TAKE ONE TABLET BY MOUTH TWICE A DAY NEEDED, MAXIMUM DAILY DOSE = 2 TABLETS SOLD: 10/04/2020 [facility] 100 mg 09/11/2020 12:00:00 AM EDT tablet 2 TAKE ONE TABLET BY MOUTH EVERY DAY TAKE ONE TABLET BY MOUTH EVERY DAY SOLD: 09/14/2020 [facility] Fenofibrate 200 MG Oral Capsule FENOFIBRATE,MICRONIZED 09/11 12:00:00 AM EDT capsule 2 TAKE ONE CAPSULE BY MOUTH EV GRAYSON DAY TAKE ONE CAPSULE BY MOUTH EVERY DAY SOLD: 09/14/2020 [facility] 100 mg 09/11/2020 12:00:00 AM EDT tablet 69 TAKE ONE TABLET BY MOUTH EVERY DAY TAKE ONE TABLET BY MOUTH EVERY DAY SOLD: 10/07/2020 [facility] Alprazolam 0.25 MG Oral Tablet ALPRAZOLAM 08/31/2020 12:00:00 AM EDT tablet 60 TAKE ONE TABLET BY MOUTH TWICE A DAY NEEDED MAXIMUM DAILY DOSE = 2 TABLETS TAKE ONE TABLET BY MOUTH TWICE A DAY NEEDED MAXIMUM DAILY DOSE = 2 TABLETS SOLD: 09/02/2020 [facility] Alprazolam 0.25 MG Oral Tablet ALPRAZOLAM 07/24/2020 12:00:00 AM EST tablet 60 TAKE ONE TABLET BY MOUTH TWICE A DAY NEEDED MAXIMUM DAILY DOSE = 2 TAKE ONE TABLET BY MOUTH TWICE A DAY NEEDED MAXIMUM DAILY DOSE = 2 SOLD: 07/27/2020 [facility] 0.5 mg 07/08/2020 12:00:00 AM EST tablet 90 TAKE ONE TABLET BY MOUTH THREE TIMES A DAY TAKE ONE TABLET BY MOUTH THREE TIMES A DAY SOLD: 11/17/2020 [facility] 0.5 mg 07/08/2020 12:00:00 AM EST tablet 90 TAKE ONE TABLET BY MOUTH THREE TIMES A DAY TAKE ONE TABLET BY MOUTH THREE TIMES A DAY SOLD: 07/09/2020 [facility] 0.5 mg 07/08/2020 12:00:00 AM EST tablet 90 TAKE ONE TABLET BY MOUTH THREE TIMES A DAY TAKE ONE TABLET BY MOUTH THREE TIMES A DAY SOLD: 09/14/2020 [facility] Escitalopram 20 MG Oral Tablet ESCITALOPRAM OXALATE 07/02/2020 1 2:00:00 AM EST tablet 90 TAKE ONE TABLET BY MOUTH EVERY D AY TAKE ONE TABLET BY MOUTH EVERY DAY SOLD: 07/04/2020 [facility] Escitalopram 20 MG Oral Tablet ESCITALOPRAM OXALATE 07/02/2020 1 2:00:00 AM EST tablet 69 TAKE ONE TABLET BY MOUTH EVERY D AY TAKE ONE TABLET BY MOUTH EVERY DAY SOLD: 10/07/2020 [facility] 62.5-25 mcg/actuation 07/02/2020 12:00:00 AM EST blister wit h device 60 INHALE ONE PUFF BY MOUTH EVERY DAY INHALE ONE PUFF BY MOUTH EVERY DAY SOLD: 07/04/2020 [facility] 300 mg 07/02/2020 12:00:00 AM EST capsule 270 TAKE ONE CAPSULE BY MOUTH THREE TIMES A DAY TAKE ONE CAPSULE BY MOUTH THREE TIMES A DAY SOLD: 07/04/2020 [facility] 10 mg 06/25/2020 12:00:00 AM EST tablet extended release 24hr 30 TAKE ONE TABLET BY MOUTH EVERY DAY TAKE ONE TABLET BY MOUTH EVERY DAY SOLD: 06/27/2020 [facility] 10 mg 06/25/2020 12:00:00 AM EST tablet extended release 24hr 30 TAKE ONE TABLET BY MOUTH EVERY DAY TAKE ONE TABLET BY MOUTH EVERY DAY SOLD: 09/02/2020 [facility] 10 mg 06/25/2020 12:00:00 AM EST tablet extended release 24hr 30 TAKE ONE TABLET BY MOUTH EVERY DAY TAKE ONE TABLET BY MOUTH EVERY DAY SOLD: 08/05/2020 [facility] Escitalopram 10 MG Oral Tablet ESCITALOPRAM OXALATE 06/15/2020 1 2:00:00 AM EST tablet 90 TAKE ONE TABLET BY MOUTH EVERY D AY TAKE ONE TABLET BY MOUTH EVERY DAY SOLD: 06/16/2020 [facility] 20 mg 06/15/2020 12:00:00 AM EST tablet 180 TAKE TWO TABLETS BY MOUTH EVERY DAY TAKE TWO TABLETS BY MOUTH EVERY DAY SOLD: 06/16/2020 [facility] 1,250 mcg (50,000 unit) 06/15/2020 12:00:00 AM EST capsule 13 TAKE ONE CAPSULE BY MOUTH EVERY WEEK TAKE ONE CAPSULE BY MOUTH EVERY WEEK SOLD: 06/16/2020 [facility] Trazodone Hydrochloride 100 MG Oral Tablet TRAZODONE HCL 06/15/2020 12:00:00 AM EST tablet 90 TAKE ONE TABLET BY MOUTH AT BEDTIME TAKE ONE TABLET BY MOUTH AT BEDTIME SOLD: 06/16/2020 [facility] Rosuvastatin calcium 20 MG Oral Tablet ROSUVASTATIN CALCIUM 06/15/2020 12:00:00 AM EST tablet 90 TAKE ONE TABLET BY MOUTH POLY DAY TAKE ONE TABLET BY MOUTH EVERY DAY SOLD: 06/16/2020 [facility] 20 mEq 06/15/2020 12:00:00 AM EST tablet extended release 90 TAKE ONE TABLET BY MOUTH EVERY DAY TAKE ONE TABLET BY MOUTH EVERY DAY SOLD: 06/16/2020 [facility] 10 mg 06/15/2020 12:00:00 AM EST tablet 90 TAKE ONE TABLET BY MOUTH EVERY DAY TAKE ONE TABLET BY MOUTH EVERY DAY SOLD: 06/16/2020 [facility] 100 mg 06/15/2020 12:00:00 AM EST tablet extended release 24 hr 90 TAKE ONE TABLET BY MOUTH EVERY DAY TAKE ONE TABLET BY MOUTH EVERY DAY SOLD: 06/16/2020 [facility] 500 mg 06/14/2020 12:00:00 AM EST tablet extended release 24 hr 180 TAKE ONE TABLET BY MOUTH TWICE A DAY TAKE ONE TABLET BY MOUTH TWICE A DAY SOLD: 06/16/2020 [facility] 8 mg 06/14/2020 12:00:00 AM EST tablet 90 TAKE ONE TABLET BY MOUTH AT BEDTIME TAKE ONE TABLET BY MOUTH AT BEDTIME SOLD: 06/16/2020 [facility] Alprazolam 0.25 MG Oral Tablet ALPRAZOLAM 06/12/2020 12:00:00 AM EST tablet 60 TAKE ONE TABLET BY MOUTH TWICE A DAY NEEDED MAXIMUM DAILY DOSE = 2 TABLETS TAKE ONE TABLET BY MOUTH TWICE A DAY NEEDED MAXIMUM DAILY DOSE = 2 TABLETS SOLD: 06/13/2020 [facility] Alprazolam 0.25 MG Oral Tablet ALPRAZOLAM 05/04/2020 12:00:00 AM EST tablet 60 TAKE ONE TABLET BY MOUTH TWICE A DAY NEEDED MAXIMUM DAILY DOSE = 2 TABLETS TAKE ONE TABLET BY MOUTH TWICE A DAY NEEDED MAXIMUM DAILY DOSE = 2 TABLETS SOLD: 05/07/2020 [facility] 0.5 mg 04/26/2020 12:00:00 AM EST tablet 60 TAKE ONE TABLET BY MOUTH TWICE A DAY TAKE ONE TABLET BY MOUTH TWICE A DAY SOLD: 04/27/2020 [facility] 0.5 mg 04/26/2020 12:00:00 AM EST tablet 60 TAKE ONE TABLET BY MOUTH TWICE A DAY TAKE ONE TABLET BY MOUTH TWICE A DAY SOLD: 09/14/2020 [facility] 0.5 mg 04/26/2020 12:00:00 AM EST tablet 60 TAKE ONE TABLET BY MOUTH TWICE A DAY TAKE ONE TABLET BY MOUTH TWICE A DAY SOLD: 06/27/2020 [facility] Alprazolam 0.25 MG Oral Tablet ALPRAZOLAM 04/05/2020 12:00:00 AM EST tablet 60 TAKE ONE TABLET BY MOUTH TWICE A DAY NEEDED MAXIMUM DAILY DOSE = 2 TAKE ONE TABLET BY MOUTH TWICE A DAY NEEDED MAXIMUM DAILY DOSE = 2 SOLD: 04/05/2020 [facility] 150 mg 04/02/2020 12:00:00 AM EST tablet 4 TAKE 1 TABLET BY MOUTH ONCE A WEEK TAKE 1 TABLET BY MOUTH ONCE A WEEK SOLD: 04/03/2020 [facility] Fenofibrate 200 MG Oral Capsule FENOFIBRATE,MICRONIZED 04/02 12:00:00 AM EST capsule 90 TAKE ONE CAPSULE BY MOUTH TAKE ONE CAPSULE BY MOUTH EVERY DAY SOLD: 04/03/2020 [facility] 100 mg 04/02/2020 12:00:00 AM EST tablet 90 TAKE ONE TABLET BY MOUTH EVERY DAY TAKE ONE TABLET BY MOUTH EVERY DAY SOLD: 04/03/2020 [facility] 600 mg 03/20/2020 12:00:00 AM EDT tablet 90 TAKE ONE TABLET BY MOUTH THREE TIMES A DAY TAKE ONE TABLET BY MOUTH THREE TIMES A DAY SOLD: 03/21/2020 [facility] 600 mg 03/20/2020 12:00:00 AM EDT tablet 90 TAKE ONE TABLET BY MOUTH THREE TIMES A DAY TAKE ONE TABLET BY MOUTH THREE TIMES A DAY SOLD: 04/27/2020 [facility] 600 mg 03/20/2020 12:00:00 AM EDT tablet 90 TAKE ONE TABLET BY MOUTH THREE TIMES A DAY TAKE ONE TABLET BY MOUTH THREE TIMES A DAY SOLD: 06/09/2020 [facility] 20 mEq 03/19/2020 12:00:00 AM EDT tablet extended release 90 TAKE ONE TABLET BY MOUTH EVERY DAY TAKE ONE TABLET BY MOUTH EVERY DAY SOLD: 03/19/2020 [facility] 10 mg 03/18/2020 12:00:00 AM EDT tablet extended release 24hr 30 TAKE ONE TABLET BY MOUTH EVERY DAY TAKE ONE TABLET BY MOUTH EVERY DAY SOLD: 05/20/2020 [facility] 10 mg 03/18/2020 12:00:00 AM EDT tablet extended release 24hr 30 TAKE ONE TABLET BY MOUTH EVERY DAY TAKE ONE TABLET BY MOUTH EVERY DAY SOLD: 03/19/2020 [facility] 10 mg 03/18/2020 12:00:00 AM EDT tablet extended release 24hr 30 TAKE ONE TABLET BY MOUTH EVERY DAY TAKE ONE TABLET BY MOUTH EVERY DAY SOLD: 04/15/2020 [facility] 8 mg 03/17/2020 12:00:00 AM EDT tablet 90 TAKE ONE TABLET BY MOUTH AT BEDTIME TAKE ONE TABLET BY MOUTH AT BEDTIME SOLD: 03/19/2020 [facility] Escitalopram 10 MG Oral Tablet ESCITALOPRAM OXALATE 03/16/2020 1 2:00:00 AM EDT tablet 90 TAKE ONE TABLET BY MOUTH EVERY D AY TAKE ONE TABLET BY MOUTH EVERY DAY SOLD: 03/19/2020 [facility] 10 mg 03/16/2020 12:00:00 AM EDT tablet 90 TAKE ONE TABLET BY MOUTH EVERY DAY TAKE ONE TABLET BY MOUTH EVERY DAY SOLD: 03/19/2020 [facility] 100 mg 03/15/2020 12:00:00 AM EDT tablet extended release 24 hr 90 TAKE ONE TABLET BY MOUTH EVERY DAY TAKE ONE TABLET BY MOUTH EVERY DAY SOLD: 03/19/2020 [facility] 50 mg 03/15/2020 12:00:00 AM EDT tablet 90 TAKE ONE TABLET BY MOUTH EVERY DAY TAKE ONE TABLET BY MOUTH EVERY DAY SOLD: 03/19/2020 [facility] Trazodone Hydrochloride 100 MG Oral Tablet TRAZODONE HCL 03/15/2020 12:00:00 AM EDT tablet 90 TAKE ONE TABLET BY MOUTH AT BEDTIME TAKE ONE TABLET BY MOUTH AT BEDTIME SOLD: 03/19/2020 [facility] Rosuvastatin calcium 20 MG Oral Tablet ROSUVASTATIN CALCIUM 03/15/2020 12:00:00 AM EDT tablet 90 TAKE ONE TABLET BY MOUTH POLY RY DAY TAKE ONE TABLET BY MOUTH EVERY DAY SOLD: 03/19/2020 [facility] 1,250 mcg (50,000 unit) 03/15/2020 12:00:00 AM EDT capsule 13 TAKE ONE CAPSULE BY MOUTH EVERY WEEK TAKE ONE CAPSULE BY MOUTH EVERY WEEK SOLD: 03/19/2020 [facility] 20 mg 03/13/2020 12:00:00 AM EDT tablet 180 TAKE TWO TABLETS BY MOUTH EVERY DAY TAKE TWO TABLETS BY MOUTH EVERY DAY SOLD: 03/19/2020 [facility] 500 mg 03/08/2020 12:00:00 AM EDT tablet extended release 24 hr 180 TAKE ONE TABLET BY MOUTH TWICE A DAY TAKE ONE TABLET BY MOUTH TWICE A DAY SOLD: 03/11/2020 [facility] Alprazolam 0.25 MG Oral Tablet ALPRAZOLAM 03/02/2020 12:00:00 AM EDT tablet 60 TAKE ONE TABLET BY MOUTH TWICE A DAY NEEDED MAXIMUM DAILY DOSE = 2 TAKE ONE TABLET BY MOUTH TWICE A DAY NEEDED MAXIMUM DAILY DOSE = 2 SOLD: 03/03/2020 [facility] 0.5 mg 12/30/2019 12:00:00 AM EDT tablet 60 TAKE ONE TABLET BY MOUTH TWICE A DAY TAKE ONE TABLET BY MOUTH TWICE A DAY SOLD: 03/06/2020 [facility] Insurance Providers Payer name Policy type / Coverage type Policy ID Covered democrat ID Covered democrat's relationship to fletcher Policy [place] Plan Information MEDICARE COMPLETE [id number] SP [id number] [facility] Commercial [id number] Self [id number] MEDICARE COMPLETE [id number] SP [id number] MEDICARE COMPLETE [id number] SP [id number] MEDICARE COMPLETE-[facility] O [id number] S [id number] TOD[employer] OPTIONS [id number] SP [id number] MEDICAID UNAVAILABLE SP UNAVAILA BLE MEDICARE C [id number] S [id number] A MEDICARE [id number] SP [id number] A MEDICARE [id number] SP [id number] A TODAYS OPTION -O/P [id number] Problems, Conditions, and Diagnoses No Information Surgeries/Procedures Procedure Description Date Indications Data Source(s) OFFICE OUTPATIENT VISIT 15 MINUTES 01/06/2021 12:00:00 AM EDT ROHAN (Phiilppe Carmichael MD) OFFICE OUTPATIENT VISIT 15 MINUTES 09/30/2020 12:00:00 AM EDT ROHAN (Philippe Carmichael MD) Results No Information Social History No Information
[2021-04-13] MEDS: RAMELTEON 8 MG TAB (ROZEREM) PO SCH (21:00)
[2021-04-13] MEDS: rOPINIRole 0.25 MG TAB(REQUIP) PO SCH (21:00)
[2021-04-13] MEDS: GABAPENTIN 300 MG CAP PO SCH (21:00)
[2021-04-13] MEDS: ROSUVASTATIN 10 MG TAB (CRESTOR) PO SCH (21:00)
[2021-04-13] MEDS: HumaLOG INSULIN (NovoLOG) PER UNIT SC SCH (21:00)
[2021-04-13] MEDS ORDERED: ROZE8TAB16 PO (21:35)
[2021-04-13] MEDS ORDERED: GABA-282 PO (21:35)
[2021-04-13] MEDS ORDERED: FENO200C PO (21:35)
[2021-04-13] MEDS ORDERED: POTA1TAB14 PO (21:35)
[2021-04-13] MEDS ORDERED: ROPI0.5T3 PO (21:35)
[2021-04-13] MEDS ORDERED: XARE10TA PO (21:35)
[2021-04-13] MEDS ORDERED: METO1TAB33 PO (21:35)
[2021-04-13] MEDS ORDERED: ALPR0.25 PO (21:35)
[2021-04-13] MEDS ORDERED: ROSU20TA5 PO (21:35)
[2021-04-13] MEDS ORDERED: ANOR1AER INH (21:35)
[2021-04-13] MEDS ORDERED: TRAZ-189 PO (21:35)
[2021-04-13] MEDS ORDERED: LOSA100T50 PO (21:35)
[2021-04-13] MEDS ORDERED: METF-838 PO (21:35)
[2021-04-13] MEDS ORDERED: BENZ0.5T23 PO (21:35)
[2021-04-13] MEDS ORDERED: LEXA1TAB2 PO (21:35)
[2021-04-13] MEDS ORDERED: OXYB10TA23 PO (21:35)
[2021-04-13] MEDS ORDERED: HOME MED LIST COMPLETE! XX SCH (21:40)
[2021-04-13] MEDS ORDERED: GLUCOSE 4GM CHEW TABLET PO PRN (22:55)
[2021-04-13] MEDS: IPRATROPIUM 0.5MG/ALBUTEROL 2.5MG INH SOL UD 3ML (DUONEB) NEB SCH (22:55)
[2021-04-13] MEDS ORDERED: GLUCAGON INJ 1MG VIAL SC PRN (22:55)
[2021-04-13] MEDS: guaiFENesin ER 600 MG TAB PO SCH (22:55)
[2021-04-13] MEDS ORDERED: DEXTROSE 50% 50 ML SYRINGE IV PRN (22:55)
[2021-04-13] MEDS ORDERED: NS 500 ML IV ONE (23:00)
[2021-04-13] MEDS ORDERED: NS 1,000 ML IV SCH (23:00)
--- NOTE | 2021-04-13 23:05 | HPEPDOC ---
General Date of Admission 04/13/21 Date of Service: Apr 13, 2021 Chief Complaint The patient is a 80-year-old female admitted with a reason for visit of Respiratory Distress. Source: EMS notes reviewed History of Present Illness Sapphire Fontaine is a 80-year-old female with significant medical history of diabetes, hypertension, former smoker, and anxiety who presents with lethargy. EMS notes reviewed and patient reportedly confused, short of breath with oxygen saturation 88% on room air. Patient seen resting comfortably in ED bed 2 L nasal cannula. Patient able to report where she is, who she is, birthday and her daughter's name however she is unaware of the year, who the president is or situation. No focal weakness appreciated but patient has trouble with higher level of following commands such as [id number] or speech repetition or identification of objects. Pt denies presently tang, sinus congestion, sore throat, sob, palpitations, chest pain, n/v/d, abdominal pain, or sensory changes. HPI assisted by patient's family. Attempts made to contact patient's daughter Tammy whom patient lives with however number did not work ([phone]). Was able to contact Liat Fontaine patient's other daughter at [phone]. Liat reports that she was present when EMS arrived for patient. Reportedly, per patient's daughter, Liat Fontaine, patient has been somewhat con fused for past 1 to 2 weeks; described as forgetful. Patient was able to reportedly mop/ clean house yesterday however patient with weakened appearance today. Family did endorse patient had a cough but "typical cough that she always has". No other complaints other than "feeling unwell past week" were described by family. Unknown regarding patient's medications. Additionally, family is able to endorse patient fell and hit her head 2 weeks ago; there is a notable bruise to the left temporal region of her head and healing stages with green coloring. Patient found to be febrile upon admission 104.2 T-max rectally. Oxygen improved 95% on 2 L nasal cannula. Chest x-ray nonacute. ABG with compensation. Patient does sound rhonchorous. UA positive nitrates, WBC and leukoesterase. Patient will be admitted for further evaluation management presenting concern. Home Medications Scheduled Benztropine Mesylate (Benztropine Mesylate) 0.5 Mg Tablet, 0.5 MG PO DAILY, (Reported) Escitalopram Oxalate (Lexapro) 20 Mg Tablet, 20 MG PO DAILY, (Reported) Fenofibrate,Micronized (Fenofibrate) 200 Mg Capsule, 200 MG PO DAILY, (Reported) Gabapentin (Gabapentin) 300 Mg Capsule, 300 MG PO BID, (Reported) Losartan Potassium (Losartan Potassium) 100 Mg Tablet, 100 MG PO QHS, (Reported) Metformin HCl (Metformin HCl ER) 500 Mg Tab.er.24h, 500 MG PO BID, (Reported) Metoprolol Succinate (Metoprolol Succinate) 100 Mg Tab.er.24h, 100 MG PO DAILY, (Reported) Oxybutynin Chloride (Oxybutynin Chloride ER) 10 Mg Tab.er.24, 10 MG PO DAILY, (Reported) Potassium Chloride (Potassium Chloride) 20 Meq Tablet.er, 20 MEQ PO DAILY, (Reported) Ramelteon (Rozerem) 8 Mg Tablet, 8 MG PO QHS, (Reported) Rivaroxaban (Xarelto) 10 Mg Tablet, 10 MG PO DAILY, (Reported) Ropinirole HCl (Ropinirole HCl) 0.5 Mg Tablet, 0.5 MG PO BID, (Reported) Rosuvastatin Calcium (Rosuvastatin Calcium) 20 Mg Tablet, 20 MG PO QHS, (Reported) Trazodone HCl (Trazodone HCl) 100 Mg Tablet, 100 MG PO QHS, (Reported) Umeclidinium Brm/Vilanterol Tr (Anoro Ellipta 62.5-25 Mcg INH) 1 Each Blst.w.dev, 1 PUFF INH DAILY, (Reported) Scheduled PRN Alprazolam (Alprazolam) 0.25 Mg Tablet, 0.25 MG PO BID PRN for ANXIETY, (Reported) Allergies Coded Allergies: No Known Allergies (Unverified , 11/06/18) Past Medical History Medical History PE on OAC, diabetes, hypertension, former smoker, restless leg syndrome, anxiety Surgical History Cardiac stent Family History Significant Family History: No pertinent family hx Social History * Smoker: former Smoker Alcohol: Denies Drugs: denies Recent Travel/Sick Contacts: Denies: Recent travel, Recent sick contacts Psychosocial History: Anxiety Patient resides with daughter; at baseline activity with carry out personal ADLs and oriented x3 A-FIB/CHADSVASC A-FIB History Current/History of A-Fib/PAF?: No Current PO Anticoag Therapy: Yes Review of Systems Constitutional: Reports: Lethargy; Denies: Chills, Fever, Night Sweats Eyes: Denies: Pain, Vision change ENT: Denies: Head Aches, Ear Pain, Dysphagia Skin: Denies: Rash, Lesions, Breakdown Pulmonary: Reports: Cough; Denies: Dyspnea Cardiovascular: Denies: Chest Pain, Palpitations, Orthopnea, Paroxysmal Noc. Dyspnea, Lt Headedness Gastrointestinal: Denies: Nausea, Vomiting, Abdominal Pain, Diarrhea Genitourinary: Denies: Dysuria, Frequency, Incontinence, Retention Hematologic: Denies: Bruising, Bleeding Excessively Musculoskeletal: Denies: Neck Pain, Back Pain, Joint Pain, Muscle Pain, Spasms Neurological: Denies: Weakness, Numbness, Change in speech, Confusion Psych: Reports: Mood Normal; Denies: Depression, Memory Issues Physical Examination General Exam: Positive: Alert, Cooperative Eye Exam: Positive: PERRLA, Conjunctiva & lids normal, EOMI; Negative: Sclera icteric ENT Exam: Positive: Atraumatic, Mucous membr. moist/pink, Pharynx Normal Neck Exam: Positive: Supple; Negative: JVD, thyromegaly Chest Exam: Positive: Rhonchi Heart Exam: Positive: Regular Rhythm, Normal S1, Normal S2; Negative: Murmurs, Rubs Telemetry: Positive: No significant arrhythmia Abdomen Exam: Positive: Normal bowel sounds, Soft; Negative: Tenderness, Hepatospenomegaly Extremity Exam: Positive: Normal pulses; Negative: Clubbing, Cyanosis, Edema Skin Exam: Positive: Rash (Groin rash/excoriation), Breakdown; Negative: Nl turgor and temperature, Lesion Neuro Exam: Positive: Normal Speech, Strength at 5/5 X4 ext, Sensation Intact; Negative: Normal Gait Psych Exam: Positive: Mood NL, Other (Oriented x2; oriented to self, place and somewhat history however not time or situation); Negative: Memory Intact, Oriented x 3 Vital Signs Vital Signs Date Time Temp Pulse Resp B/P (MAP) Pulse Ox O2 Delivery O2 Flow Rate FiO2 04/13/21 22:17 71 20 102/58 (73) 96 Nasal Cannula 2.0 04/13/21 21:50 97.8 Laboratory Data Labs 24H Laboratory Tests 2 04/13/21 18:01: Immature Granulocyte % (Auto) 1.1, Neutrophils (%) (Auto) 93.8H, Lymphocytes (%) (Auto) 2.6L, Monocytes (%) (Auto) 2.2, Eosinophils (%) (Auto) 0.1, Basophils (%) (Auto) 0.2, Neutrophils # (Auto) 15.1H, Lymphocytes # (Auto) 0.4L, Monocytes # (Auto) 0.4, Eosinophils # (Auto) 0.0, Basophils # (Auto) 0.0, Nucleated Red Blood Cells % (auto) 0.0, Prothrombin Time 22.0H, Prothromb Time International Ratio 1.88, Activated Partial Thromboplast Time 42.0H, Fibrinogen 555H, D-Dimer, Quantitative 1196.18H, Anion Gap 7L, Glomerular Filtration Rate 30.7L, Lactic Acid Level 1.4, Calcium Level 8.1L, Magnesium Level 1.5L, Ferritin 164, Total Bilirubin 0.9, Aspartate Amino Transf (AST/SGOT) 21, Alanine Aminotransferase (ALT/SGPT) 16, Alkaline Phosphatase 46, Lactate Dehydrogenase 183, Total Creatine Kinase 91, Creatine Kinase MB < 1.0, Creatine Kinase MB Relative Index 1.10, Troponin I < 0.02, C-Reactive Protein, Quantitative 8.58H, VA-Ldt-R-Type Natriuretic Peptide 1775H, Total Protein 5.9L, Albumin 2.6L, Albumin/Globulin Ratio 0.8L, Procalcitonin 5.76 04/13/21 18:11: Blood Gas Bicarbonate Standard 22.4, Arterial Blood pH 7.420, Arterial Blood Partial Pressure CO2 33.3L, Arterial Blood Partial Pressure O2 131.7H, Arterial Blood Total CO2 22.1L, Arterial Blood HCO3 21.1L, Arterial Blood Base Excess -2 .6L, Arterial Blood Oxygen Saturation 98.7 04/13/21 19:34: Urine Color YELLOW, Urine Appearance TURBIDH, Urine pH 6.0, Urine Specific Steward 1.010, Urine Protein 2+H, Urine Glucose (UA) NEGATIVE, Urine Ketones NEGATIVE, Urine Blood 2+H, Urine Nitrite POSITIVEH, Urine Bilirubin NEGATIVE, Urine Urobilinogen 0.2, Urine Leukocyte Esterase 3+H, Urine WBC (Auto) TNTCH, Urine RBC (Auto) 67H, Urine Hyaline Casts (Auto) 0, Urine Bacteria (Auto) 3+H, Urine Squamous Epithelial Cells 0, Urine Sperm (Auto) CBC/BMP Laboratory Tests 04/13/21 18:01 Microbiology Microbiology 04/13/21 Urine Culture, Received Pending 04/13/21 Blood Culture, Received Pending 04/13/21 Respiratory Virus Panel (PCR) ([facility]) - Final, Complete 04/13/21 Blood Culture, Received Pending Assessment/Plan 1. Sepsis secondary to UTI: Febrile, elevated leukocytosis, no lactic acidosis. Tachycardic and tachypneic upon arrival to ED. Patient during course of admission soft blood pressure map less than 60 improved with 30 mL/kg resuscitation normal saline. -Monitor for signs symptoms worsening infection. -Continue maintenance fluids -Empiric coverage with Rocephin; follow-up culture for adjustment -A.m. labs, repeat lactic 2. Encephalopathy: In setting above, anticipate metabolic/toxic encephalopathy. -Plan for neurochecks and treatment to resolve sepsis. -Consider differential: Although lower suspicion, plan for CT head given limitation to HPI as well as pt with notable bruising, recent fall and on OAC. 3. COPD exacerbation: Patient 88% on room air, uncertain regarding patient's baseline given her former smoking history however she does not typically use inhalers or require home oxygen per family member. Given patient presented with elevated temperature her tachypnea could be related to fever. Patient with compensation on ABG and responding well to 2 L nasal cannula 94%. Given rhonchorous lung sounds, patient with notable cough however poor historian regarding review of systems; will treat as COPD exacerbation and monitor patient response. -Monitor patient for signs symptoms of infection -Telemetry and continuous pulse -Oxygen titration for SPO2 88 to 92% -Scheduled and as needed breathing treatment -Antitussives and mucolytic's -Scheduled steroids; consider escalation de-escalation -Empiric coverage. Consider expanding coverage accordingly. -A.m. lab 4. Mild BRYAN: In setting of above. Creatinine 1.2 with last labs to 1.7 upon admission. Likely patient with poor p.o. intake given clinical picture. -Plan for fluid hydration with above as well as maintenance. -Monitor fluid balance, I's and O's, urinary output -Avoid nephrotoxins as able -A.m. labs -Consider nephrology consult pending patient response 5. Diabetes: -Check A1c. -Metformin on hold given elevated creatinine. -Monitor patient blood glucose ACHS. -Sliding scale insulin. -A.m. labs. 6. HTN: -Monitor BP in setting of above. -Metoprolol on hold given patient hypotension. -Losartan on hold given BRYAN. -Consider restarting antihypertensives pending clinical course. 7. Hx PE: On Xarelto. Continue. 8. Restless leg syndrome: Requip with parameters. 9. Anxiety: Ativan on hold given patient encephalopathy and hypotension. Monitor for any signs/symptoms withdrawal. De-escalation nonpharmacologic methods to manage any anxiety presently. DVT prophylaxis: SCDs, continue Xarelto CODE STATUS: Full code; contacted 1 of patient's daughters who confirmed patient to be full code at present. Daughter was made aware and verbalized understanding regarding patient in acute condition, may need vasopressors pending her response to fluid resuscitation. She verbalized understanding patient with guarded prognosis. Disposition planning: Anticipate 2 midnight stay pending clinical course. Plan / VTE VTE Prophylaxis Ordered?: Yes ROMY VENTURA NP Apr 13, 2021 22:56
--- OUTSIDE RECORDS SUMMARY | 2021-04-13 23:13 | CCD ---
Author Author [facility] Organization [facility] Address Unknown Phone Unavailable Care Team Providers Care Deli/Bakery Associate Name Role Phone JESS G JEVON PA Unavailable Unavailable TONTARSKI, G [...] is protected by Article 27-F of the [place] State Public Health law. If you continue you may have access to information: Regarding HIV / AIDS; Provided by facilities licensed or operated by the [facility] Office of Mental Health; or Provided by the [facility] Office for People With Developmental Disabilities. If such information is present, then the following [facility] mandated warning applies: This information has [...] law may result in a fine or residential sentence or both. A general authorization for the release of medical or other information is NOT sufficient authorization for further disc losure. Family History Family Member Name Family Member Gender Family Member Status Date o f Status Description Data Source(s) Unknown Male Problem [facility] ([facility]) Encounters Encounter Providers Location Date Indications Data Source(s ) Outpatient Attender: [facility] 01/06/2021 10:00:00 AM EDT [facility] (Philippe Carmichael MD) Outpatient Attender: [facility] 09/30/2020 10:00:00 AM EDT [facility] (Philippe Carmichael MD) Immunizations Vaccine Date Status Description Data Source(s) COVID-19 VACCINE Moderna 02/03/2021 12:00:00 AM EDT completed WISIIS Vaccine Series Complete: YESThis Data wa s Submitted to [facility]. COVID-19 VACCINE Moderna 01/06/2021 12:00:00 AM EDT completed WISIIS Vaccine Series Complete: NOThis Data was Submitted to [facility]. Medications Medication Brand Name Start Date Product [...] BY MOUTH EVERY DAY SOLD: 12/12/2020 [facility] Escitalopram 20 MG Oral Tablet ESCITALOPRAM [...] EVERY DAY SOLD: 12/12/2020 [facility] 20 mg 12/09/2020 12:00:00 AM [...] MOUTH EVERY DAY SOLD: 10/07/2020 [facility] 500 mg 10/05/2020 12:00:00 AM EDT [...] DAILY DOSE = 2 TABLETS SOLD: 10/04/2020 [facility] 100 mg 09/11/2020 12:00:00 AM EDT [...] DAILY DOSE = 2 TABLETS SOLD: 09/02/2020 [facility] Alprazolam 0.25 MG Oral Tablet ALPRAZOLAM 07/24/2020 12:00:00 AM EST tablet 60 TAKE ONE TABLET BY MOUTH TWICE A DAY NEEDED MAXIMUM DAILY DOSE = 2 TAKE ONE TABLET BY MOUTH TWICE A DAY NEEDED MAXIMUM DAILY DOSE = 2 SOLD: 07/27/2020 [facility] 0.5 mg 07/08/2020 12:00:00 AM EST tablet 90 TAKE ONE TABLET BY MOUTH THREE TIMES A DAY TAKE ONE TABLET BY MOUTH THREE TIMES A DAY SOLD: 11/17/2020 [facility] 0.5 mg 07/08/2020 12:00:00 AM [...] TABLETS BY MOUTH EVERY DAY SOLD: 06/16/2020 [facility] 1,250 mcg (50,000 unit) 06/15/2020 12:00:00 [...] tablet 90 TAKE ONE TABLET BY MOUTH TAKE ONE TABLET BY MOUTH EVERY DAY [...] DAILY DOSE = 2 TABLETS SOLD: 06/13/2020 [facility] Alprazolam 0.25 MG Oral Tablet ALPRAZOLAM [...] MAXIMUM DAILY DOSE = 2 SOLD: 04/05/2020 [facility] 150 mg 04/02/2020 12:00:00 AM EST tablet 4 TAKE 1 TABLET BY MOUTH ONCE A WEEK TAKE 1 TABLET BY MOUTH ONCE A WEEK SOLD: 04/03/2020 [facility] Fenofibrate 200 MG Oral Capsule FENOFIBRATE,MICRONIZED 04/02 12:00:00 AM EST capsule 90 TAKE ONE CAPSULE BY MOUTH GRAYSON TAKE ONE CAPSULE BY MOUTH EVERY DAY SOLD: 04/03/2020 [facility] 100 mg 04/02/2020 12:00:00 AM EST tablet 90 TAKE ONE TABLET BY MOUTH EVERY DAY TAKE ONE TABLET BY MOUTH EVERY DAY SOLD: 04/03/2020 [facility] 600 mg 03/20/2020 12:00:00 AM EDT tablet 90 TAKE ONE TABLET BY MOUTH THREE TIMES A DAY TAKE ONE TABLET BY MOUTH THREE TIMES A DAY SOLD: 03/21/2020 [facility] 600 mg 03/20/2020 12:00:00 AM EDT tablet 90 TAKE ONE TABLET BY MOUTH THREE TIMES A DAY TAKE ONE TABLET BY MOUTH THREE TIMES A DAY SOLD: 04/27/2020 [facility] 600 mg 03/20/2020 12:00:00 AM EDT [...] TABLET BY MOUTH AT BEDTIME SOLD: 03/19/2020 [facility] Escitalopram 10 MG Oral Tablet ESCITALOPRAM OXALATE 03/16/2020 1 2:00:00 AM EDT tablet 90 TAKE ONE TABLET BY MOUTH EVERY D AY TAKE ONE TABLET BY MOUTH EVERY DAY SOLD: 03/19/2020 [facility] 10 mg 03/16/2020 12:00:00 AM [...] TABLET BY MOUTH AT BEDTIME SOLD: 03/19/2020 [facility] Rosuvastatin calcium 20 MG [...] type / Coverage type Policy ID Covered constitution party ID Covered constitution party's relationship to fletcher Policy Fletcher Plan Information MEDICARE COMPLETE [id number] SP [id number] [facility] Commercial [id number] Self [id number] MEDICARE COMPLETE [id number] SP [id number] MEDICARE COMPLETE [id number] SP 1 [id number] MEDICARE COMPLETE-[facility] O [id number] S [id number] TODAYS OPTIONS [id number] SP [id number] MEDICAID UNAVAILABLE SP UNAVAILA BLE MEDICARE C [id number] S [id number] A MEDICARE [id number] SP [id number] A MEDICARE [id number] SP [id number] A TODAYS OPTION -O/P [id number] 18 0 [id number] Problems, Conditions, and Diagnoses No Information Surgeries/Procedures Procedure Description Date Indications Data Source(s) OFFICE OUTPATIENT VISIT 15 MINUTES 01/06/2021 12:00:00 AM EDT [facility] (Philippe Carmichael MD) OFFICE OUTPATIENT VISIT 15 MINUTES 09/30/2020 12:00:00 AM EDT [facility] (Philippe Carmichael MD) Results No Information Social History No Information
[2021-04-14] VITALS (38 sets, daily range): BP systolic 84–157; BP diastolic 44–77
[2021-04-14] MEDS ORDERED: ALBUTEROL SULFATE 2.5 MG/0.5 ML INH NEB SOLN NEB PRN (01:40)
[2021-04-14 02:11] LABS: BASO % 0.3 % (0.0-1.0); EOS % 0.1 % (0.0-3.0); HEMATOCRIT 37.4 % (36.0-47.0); LYMPH # 0.8 10^3/uL (1.5-5.0); LYMPH % 5.2 % (24.0-44.0); MEAN CORPUSCULAR HEMOGLOBIN 32.3 pg (27.0-33.0); MEAN CORPUSCULAR HGB CONC 32.1 g/dl (32.0-36.5); MEAN CORPUSCULAR VOLUME 100.5 fl (80.0-96.0); MONO # 0.5 10^3/uL (0.0-0.8); MONO % 3.3 % (2.0-8.0); NEUTROPHILS # 13.4 10^3/uL (1.5-8.5); NEUTROPHILS % 90.5 % (36.0-66.0); PLATELET COUNT, AUTOMATED 231 10^3/uL (150-450); RED BLOOD COUNT 3.72 10^6/uL (4.00-5.40); WHITE BLOOD COUNT 14.8 10^3/uL (4.0-10.0)
--- NOTE | 2021-04-14 02:30 | REPVR ---
PROCEDURE INFORMATION: Exam: CT Head without Contrast Exam date and time: 04/13/21 (1:13am) Age: 80 years old Clinical indication: Altered mental status / memory loss. Confusion or disorientation. Bruisng head. TECHNIQUE: Imaging protocol: Computed tomography of the head without contrast Radiation optimization: All CT scans at this facility use at least one of these dose optimization techniques: automated exposure control; mA and/or kV adjustment per patient size (includes targeted exams where dose is matched to clinical indication); or iterative reconstruction. COMPARISON: No relevant prior studies available FINDINGS: Brain: No acute hemorrhage. No cerebral edema. No mass effect. Age-related atrophic changes are noted. Periventricular and subcortical areas of low attenuation, compatible with chronic small vessel microischemic changes. Cerebral ventricles: No ventriculomegaly. Paranasal sinuses: Visualized sinuses are unremarkable. No air-fluid levels. Mastoid air cells: Visualized mastoid air cells are well aerated. Bones/joints: Unremarkable. No acute fracture. Soft tissues: Unremarkable. IMPRESSION: No acute intracranial pathology is appreciated. Chronic atrophic and microischemic changes. Electronically signed by: Nunu Landa On 04/14/2021 02:30:11 AM
[2021-04-14 02:32] LABS: CALCIUM LEVEL 7.7 MG/DL (8.8-10.2); CREATININE FOR GFR 1.75 MG/DL (0.55-1.30); GLOMERULAR FILTRATION RATE 29.8 (>39); POTASSIUM SERUM 4.6 MEQ/L (3.5-5.1)
[2021-04-14] MEDS: ACETAMINOPHEN TAB 650MG DOSE (2X325MG) PO PRN ×2 (04:46→09:10)
[2021-04-14] MEDS: HumaLOG INSULIN (NovoLOG) PER UNIT SC SCH ×4 (07:30→20:08)
[2021-04-14] MEDS: IPRATROPIUM 0.5MG/ALBUTEROL 2.5MG INH SOL UD 3ML (DUONEB) NEB SCH ×3 (07:34→19:24)
[2021-04-14] MEDS: GABAPENTIN 300 MG CAP PO SCH ×2 (08:15→20:13)
[2021-04-14] MEDS: ESCITALOPRAM OXALATE 10 MG TAB (LEXAPRO) PO SCH (09:05)
[2021-04-14] MEDS: NYSTATIN 100,000 UNITS/GM TOPICAL PWD 15 GM TOP SCH ×2 (09:05→20:14)
[2021-04-14] MEDS: RIVAROXABAN 10 MG TAB (XARELTO) PO SCH (09:06)
[2021-04-14] MEDS: cefTRIAXone SOD 1 GM in D5W MINI-BAG PLUS 50 ML IV SCH (09:06)
[2021-04-14] MEDS: LACTOBACILLUS ACIDOPHILUS CAP (BACID) PO SCH ×2 (09:06→18:20)
[2021-04-14] MEDS: BENZTROPINE 0.5 MG TAB PO SCH (09:06)
[2021-04-14] MEDS: predniSONE 20 MG TAB PO SCH (09:06)
[2021-04-14] MEDS: guaiFENesin ER 600 MG TAB PO SCH ×2 (09:06→20:13)
[2021-04-14] MEDS: rOPINIRole 0.25 MG TAB(REQUIP) PO SCH ×2 (09:06→20:13)
--- NOTE | 2021-04-14 11:01 | IPNPDOC ---
Text Note Date of Service The patient was seen on 04/14/21. NOTE Subjective: Patient is a 80-year-old female admitted overnight for encephalo bogdan likely secondary to UTI. She remains somewhat confused this morning and continues to be unaware of the year, president, or situation. She denies any complaints at this time including fever, chills, chest pain, difficulty breathing, abdominal pain, nausea, vomiting, dysuria. Objective: General: Tired appearing female laying in bed in no acute distress. HEENT: NC, AT. EOMI, no scleral icterus. No pharyngeal erythema, dry mucous membranes Neck: No lymphadenopathy or JVD CV: RRR, Normal S1 and S2. No murmurs, gallops, or rubs. Resp: CTAB with diminished breath sounds. No wheezes, crackles, or rhonchi. Abdomen: Bowel sounds present. Soft, NT, ND. Extremities: No swelling or edema. Neuro: Alert and oriented to person, date of , place, but not situation, year, or president 04/13/2021 chest x-ray: "IMPRESSION: No acute cardiopulmonary process appreciated." 04/13/[address]: "IMPRESSION: No acute intracranial pathology is appreciated. Chronic atrophic and micro-ischemic changes." Assessment/Plan: #. Acute metabolic encephalopathy likely secondary to UTI Continue Rocephin, patient is S/P 4.5 L overnight WBC downtrending, lactic acid WNL, repeat pro-Billy pending, will decrease IVF to 60ml/hr -UC, BC pending CT head negative Patient continues to be somewhat disoriented likely in light of her UTI we will continue to allow the antibiotics more time to work #. COPD exacerbation Continue prednisone, duo nebs, albuterol, Mucinex Currently on 2 L nasal cannula and 99%, nursing staff is weaning oxygen #. Acute renal failure -Likely prerenal in light of UTI S/p 4.5 L overnight, continue with IV fluids at 60 mL/HR -Baseline Cr 1.3 Repeating BMP this a.m., if renal function does not improve we will order urine lites #. Type 2 diabetes -Last A1C in 2019 6.4% #. Hypertension Metoprolol, losartan on hold given soft blood pressures #. History of PE Continue Xarelto #. Restless leg syndrome Continue Requip #. History of anxiety Continue holding Ativan DVT prophylaxis: Continue home Xarelto Disposition: Pending clinical improvement VS,Fishbone, I+O VS, Fishbone, I+O Laboratory Tests 04/13/21 18:01 04/14/21 01:49 Vital Signs Date Time Temp Pulse Resp B/P (MAP) Pulse Ox O2 Delivery O2 Flow Rate FiO2 04/14/21 06:30 63 98/52 (67) 94 04/14/21 05:00 102.2 04/14/21 04:01 24 3.0 04/13/21 22:17 Nasal Cannula I&O- Last 24 Hours up to 6 AM 04/14/21 06:00 Intake Total 1050 ml Output Total 395 ml Balance 655 ml GME ATTESTATION GME ATTESTATION My faculty preceptor for this patient encounter was physically present during the encounter and was fully available. All aspects of the patient interview, examination, medical decision making process, and medical care plan development were reviewed and approved by the faculty preceptor. The faculty preceptor is aware and concurs with the plan as stated in the body of this note and will attest to such by his/her cosignature. ATTENDING NOTE I, Aneesh Mathis, have independently examined this patient and performed my own physical exam, as well as reviewed the documentation and edited where necessary with the resident. For medical students we have performed the physical exam together and discussed medical decision making and I have verified the history. I have discussed in detail with the resident / student the findings and plan of treatment as documented by the resident / student and edited their note. I agree with their findings and treatment plan and have edited their documentation. I will continue to follow the patient during this hospital stay. JEFF KERN DO Apr 14, 2021 11:01 ANEESH MATHIS MD Apr 14, 2021 11:29
[2021-04-14] MEDS: NS 1,000 ML IV SCH (11:17)
[2021-04-14 12:25] LABS: CALCIUM LEVEL 7.7 MG/DL (8.8-10.2); CREATININE FOR GFR 1.38 MG/DL (0.55-1.30); GLOMERULAR FILTRATION RATE 39.3 (>39); POTASSIUM SERUM 3.8 MEQ/L (3.5-5.1)
[2021-04-14] MEDS: MAG SULF 1GM/100ML (MAG RUN) 1 GM in IV 1 EA IV SCH ×3 (12:34→15:03)
[2021-04-14 13:21] LABS: HEMOGLOBIN A1c 5.8 %
[2021-04-14] MEDS: RAMELTEON 8 MG TAB (ROZEREM) PO SCH (20:13)
[2021-04-14] MEDS: ROSUVASTATIN 10 MG TAB (CRESTOR) PO SCH (20:13)
[2021-04-15] MEDS: IPRATROPIUM 0.5MG/ALBUTEROL 2.5MG INH SOL UD 3ML (DUONEB) NEB SCH ×2 (02:00→08:00)
[2021-04-15] MEDS: NS 1,000 ML IV SCH (03:30)
[2021-04-15 05:30] VITALS: BP 110/61
[2021-04-15] MEDS: HumaLOG INSULIN (NovoLOG) PER UNIT SC SCH ×4 (07:30→21:00)
[2021-04-15] MEDS: rOPINIRole 0.25 MG TAB(REQUIP) PO SCH ×2 (08:44→21:10)
[2021-04-15] MEDS: predniSONE 20 MG TAB PO SCH (08:44)
[2021-04-15] MEDS: ESCITALOPRAM OXALATE 10 MG TAB (LEXAPRO) PO SCH (08:44)
[2021-04-15] MEDS: RIVAROXABAN 10 MG TAB (XARELTO) PO SCH (08:44)
[2021-04-15] MEDS: LACTOBACILLUS ACIDOPHILUS CAP (BACID) PO SCH ×2 (08:44→18:10)
[2021-04-15] MEDS: GABAPENTIN 300 MG CAP PO SCH ×2 (08:44→21:10)
[2021-04-15] MEDS: guaiFENesin ER 600 MG TAB PO SCH ×2 (08:44→21:10)
[2021-04-15] MEDS: BENZTROPINE 0.5 MG TAB PO SCH (08:44)
[2021-04-15] MEDS: NYSTATIN 100,000 UNITS/GM TOPICAL PWD 15 GM TOP SCH ×2 (08:46→21:12)
[2021-04-15] MEDS: cefTRIAXone SOD 1 GM in D5W MINI-BAG PLUS 50 ML IV SCH (08:46)
[2021-04-15 08:55] LABS: BASO % 0.1 % (0.0-1.0); EOS # 0.1 10^3/uL (0.0-0.5); EOS % 0.6 % (0.0-3.0); HEMOGLOBIN 11.1 g/dl (12.0-15.5); LYMPH # 0.5 10^3/uL (1.5-5.0); LYMPH % 5.9 % (24.0-44.0); MEAN CORPUSCULAR HEMOGLOBIN 31.7 pg (27.0-33.0); MEAN CORPUSCULAR HGB CONC 32.6 g/dl (32.0-36.5); MEAN CORPUSCULAR VOLUME 97.1 fl (80.0-96.0); MONO # 0.5 10^3/uL (0.0-0.8); MONO % 6.2 % (2.0-8.0); NEUTROPHILS # 7.5 10^3/uL (1.5-8.5); NEUTROPHILS % 86.6 % (36.0-66.0); PLATELET COUNT, AUTOMATED 202 10^3/uL (150-450); WHITE BLOOD COUNT 8.7 10^3/uL (4.0-10.0)
[2021-04-15 09:08] LABS: INR 1.44
[2021-04-15 09:10] LABS: PARTIAL THROMBOPLASTIN TIME 43.6 SECONDS (25.9-37.0)
[2021-04-15 09:19] LABS: CALCIUM LEVEL 8.2 MG/DL (8.8-10.2); CREATININE FOR GFR 1.31 MG/DL (0.55-1.30); GLOMERULAR FILTRATION RATE 41.7 (>39); POTASSIUM SERUM 3.9 MEQ/L (3.5-5.1)
--- NOTE | 2021-04-15 09:25 | IPNPDOC ---
Text Note Date of Service The patient was seen on 04/15/21. NOTE Subjective: Patient is a 80-year-old female admitted overnight for encephalopathy secondary to UTI. Patient is much more alert this morning and is already expressing interest in going home, she is oriented to person, , and knows she is in a hospital in [place], but does not know the year or situation and is unable to recall the events of the last 2 days. She denies any complaints at this time including fever, chills, chest pain, difficulty breathing, abdominal pain, nausea, vomiting, dysuria. Objective: General: Well nourished female who appears stated age laying in bed in no acute distress. HEENT: NC, AT. EOMI, no scleral icterus. No pharyngeal erythema, dry mucous membranes Neck: No lymphadenopathy or JVD CV: RRR, Normal S1 and S2. No murmurs, gallops, or rubs. Resp: CTAB with full breath sounds. No wheezes, crackles, or rhonchi. Abdomen: Bowel sounds present. Soft, NT, ND. Extremities: No swelling or edema. Neuro: Alert and oriented to person, date of , place, but not situation, year, or president 04/13/2021 chest x-ray: "IMPRESSION: No acute cardiopulmonary process appreciated." 04/13/[address]: "IMPRESSION: No acute intracranial pathology is appreciated. Chronic atrophic and micro-ischemic changes." Assessment/Plan: #. Acute metabolic encephalopathy likely secondary klebsiella UTI Continue Rocephin, urine culture sensitive to same, although she remains somewhat confused, she is more alert and active than she was yesterday, will continue IV abx an additional day and transition to PO cefdinir on 04/16. WBC normal, lactic acid WNL, temp 100.3 this AM, pro-kelsi elevated, continuing with IV Rocephin and IVF at 60 ml/hr as her urine output is still somewhat low -D/C alanis catheter following trial of void. -BCx2 negative CT head negative -PT evaluation ordered #. COPD exacerbation Continue prednisone, duo nebs, albuterol, Mucinex Now on room air #. Acute renal failure -Resolved; Cr at baseline~1.3 #. Type 2 diabetes -A1C of 5.8%, down from 6.4% in 2019, continue sliding scale #. Hypertension Metoprolol, losartan on hold given soft blood pressures #. History of PE Continue Xarelto #. Restless leg syndrome Continue Requip #. History of anxiety Continue holding Ativan DVT prophylaxis: Continue home Xarelto Disposition: Pending clinical improvement VS,Fishbone, I+O VS, Fishbone, I+O Laboratory Tests 04/14/21 11:13 04/15/21 08:18 Vital Signs Date Time Temp Pulse Resp B/P (MAP) Pulse Ox O2 Delivery O2 Flow Rate FiO2 04/15/21 05:30 100.3 83 21 110/61 (77) 91 Room Air 04/14/21 15:41 2.0 I&O- Last 24 Hours up to 6 AM 04/15/21 06:00 Intake Total 5750 ml Output Total 925 ml Balance 4825 ml GME ATTESTATION GME ATTESTATION My faculty preceptor for this patient encounter was physically present during the encounter and was fully available. All aspects of the patient interview, examination, medical decision making process, and medical care plan development were reviewed and approved by the faculty preceptor. The faculty preceptor is aware and concurs with the plan as stated in the body of this note and will attest to such by his/her cosignature. ATTENDING NOTE I, Aneesh Mathis, have independently examined this patient and performed my own physical exam, as well as reviewed the documentation and edited where necessary with the resident. For medical students we have performed the physical exam together and discussed medical decision making and I have verified the history. I have discussed in detail with the resident / student the findings and plan of treatment as documented by the resident / student and edited their note. I agree with their findings and treatment plan and have edited their documentation. I will continue to follow the patient during this hospital stay. JEFF KERN DO Apr 15, 2021 09:25 ANEESH MATHIS MD Apr 15, 2021 11:32
[2021-04-15] MEDS ORDERED: ALBUTEROL 90 MCG/ACT 8GM HFA INHALER INH PRN (13:20)
[2021-04-15 14:00] VITALS: BP 116/50
[2021-04-15] MEDS: ROSUVASTATIN 10 MG TAB (CRESTOR) PO SCH (21:10)
[2021-04-15] MEDS: RAMELTEON 8 MG TAB (ROZEREM) PO SCH (21:11)
[2021-04-15 21:12] VITALS: BP 126/61
[2021-04-16 06:00] VITALS: BP 131/59
[2021-04-16 06:30] LABS: BASO % 0.1 % (0.0-1.0); EOS # 0.1 10^3/uL (0.0-0.5); EOS % 0.6 % (0.0-3.0); HEMATOCRIT 33.3 % (36.0-47.0); LYMPH # 0.8 10^3/uL (1.5-5.0); LYMPH % 9.6 % (24.0-44.0); MEAN CORPUSCULAR HEMOGLOBIN 31.8 pg (27.0-33.0); MEAN CORPUSCULAR VOLUME 96.2 fl (80.0-96.0); MONO # 0.5 10^3/uL (0.0-0.8); MONO % 5.9 % (2.0-8.0); NEUTROPHILS # 6.6 10^3/uL (1.5-8.5); PLATELET COUNT, AUTOMATED 211 10^3/uL (150-450); RED BLOOD COUNT 3.46 10^6/uL (4.00-5.40)
[2021-04-16 06:48] LABS: CALCIUM LEVEL 8.3 MG/DL (8.8-10.2); CREATININE FOR GFR 1.18 MG/DL (0.55-1.30); POTASSIUM SERUM 3.8 MEQ/L (3.5-5.1)
[2021-04-16] MEDS: HumaLOG INSULIN (NovoLOG) PER UNIT SC SCH (07:30)
--- NOTE | 2021-04-16 07:42 | ECGEPIP ---
[facility] - ED Test Date: 2021-04-13 Pat Name: IDRIS KHANNA Department: Room: - Gender: Female Proof Passer: MOHIT : 1940 Requested By: HESHAM HERNANDEZ Order Number: [id number] Reading MD: Halle Reyes Measurements Intervals [place] Rate: 101 P: 60 IN: 200 QRS: 61 QRSD: 70 T: 131 QT: 356 QTc: 461 Interpretive Statements Sinus tachycardia Nonspecific ST and T wave abnormality compared 11/06/18 Electronically Signed on 04-16-2021 7:41:43 EST by Halle Reyes
[2021-04-16] MEDS: ESCITALOPRAM OXALATE 10 MG TAB (LEXAPRO) PO SCH (08:10)
[2021-04-16] MEDS: GABAPENTIN 300 MG CAP PO SCH (08:10)
[2021-04-16] MEDS: LACTOBACILLUS ACIDOPHILUS CAP (BACID) PO SCH (08:10)
[2021-04-16] MEDS: RIVAROXABAN 10 MG TAB (XARELTO) PO SCH (08:10)
[2021-04-16] MEDS: BENZTROPINE 0.5 MG TAB PO SCH (08:10)
[2021-04-16] MEDS: guaiFENesin ER 600 MG TAB PO SCH (08:11)
[2021-04-16] MEDS: rOPINIRole 0.25 MG TAB(REQUIP) PO SCH (08:11)
[2021-04-16] MEDS: NYSTATIN 100,000 UNITS/GM TOPICAL PWD 15 GM TOP SCH (08:12)
[2021-04-16] MEDS: cefTRIAXone SOD 1 GM in D5W MINI-BAG PLUS 50 ML IV SCH (08:12)
[2021-04-16] MEDS ORDERED: predniSONE 20 MG TAB PO SCH (09:00)
[2021-04-16] MEDS ORDERED: VENTAER INH (09:26)
[2021-04-16] MEDS ORDERED: CEFD1CAP8 PO (09:26)
[2021-04-16] MEDS ORDERED: PRED20TA PO (09:26)
--- NOTE | 2021-04-16 09:35 | DS.PDOC ---
Discharge Summary General Date of Admission Apr 13, 2021 at 22:51 Date of Discharge 04/16/2021 Primary Care Physician: Riley Gandhi Attending Physician: ANEESH JUDD MD Discharge Summary PROCEDURES PERFORMED DURING STAY: None. ADMITTING/DISCHARGE DIAGNOSES: Acute metabolic encephalopathy 2/2 UTI Klebsiella UTI COPD exacerbation Acute renal failure Type 2 diabetes Hypertension History of PE Restless leg syndrome History of anxiety COMPLICATIONS/CHIEF COMPLAINT: Altered mental status HISTORY OF PRESENT ILLNESS/HOSPITAL COURSE: "Sapphire Fontaine is a 80-year-old female with significant medical history of diabetes, hypertension, former smoker, and anxiety who presents with lethargy. EMS notes reviewed and patient reportedly confused, short of breath with oxygen saturation 88% on room air. Patient seen resting comfortably in ED bed 2 L nasal cannula. Patient able to report where she is, who she is, birthday and her daughter's name however she is unaware of the year, who the president is or situation. No focal weakness appreciated but patient has trouble with higher level of following commands such as [id number] or speech repetition or identification of objects. Pt denies presently tang, sinus congestion, sore throat, sob, palpitations, chest pain, n/v/d, abdominal pain, or sensory changes. HPI assisted by patient's family. Attempts made to contact patient's daughter Tammy whom patient lives with however number did not work ([phone]). Was able to contact Liat Fontaine patient's other daughter at [phone]. Liat reports that she was present when EMS arrived for patient. Reportedly, per patient's daughter, Liat Fontaine, patient has been somewhat confused for past 1 to 2 weeks; described as forgetful. Patient was able to re portedly mop/ clean house yesterday however patient with weakened appearance today. Family did endorse patient had a cough but "typical cough that she always has". No other complaints other than "feeling unwell past week" were described by family. Unknown regarding patient's medications. Additionally, family is able to endorse patient fell and hit her head 2 weeks ago; there is a notable bruise to the left temporal region of her head and healing stages with green coloring." HOSPITAL COURSE: Patient received 4.5 L of IV fluids overnight on day 1 and was started on IV antibiotics with some mild improvement in her white blood cell count but ultimately remaining somewhat confused and on 2 L nasal cannula. She was also started on IV steroids for concern for a COPD exacerbation. On day 2 she had improved clinically was off oxygen and was significantly more alert than she was the day prior however she still had some residual baseline confusion and required evaluation by physical therapy due to some weakness from her hospitalization. Day of discharge her mentation had significantly improved and it appears as though she is back to baseline. She still does have some difficulties with the year, the name of the hospital, and who the president is but she is aware of her name date of and her situation now. She was evaluated by physical therapy on day of discharge and deemed appropriate for discharge home. She was discharged home with 3 additional days of oral prednisone and 4 more days of antibiotic therapy with instructions to follow-up with her primary care provider. DISCHARGE MEDICATIONS: Please see below. ALLERGIES: Please see below. PHYSICAL EXAMINATION ON DISCHARGE: VITAL SIGNS: Please see below. General: Well nourished female who appears stated age laying in bed in no acute distress. HEENT: NC, AT. EOMI, no scleral icterus. No pharyngeal erythema, dry mucous membranes Neck: No lymphadenopathy or JVD CV: RRR, Normal S1 and S2. No murmurs, gallops, or rubs. Resp: CTAB with full breath sounds. No wheezes, crackles, or rhonchi. Abdomen: Bowel sounds present. Soft, NT, ND. Extremities: No swelling or edema. Neuro: Alert and oriented to person, date of , situation, thought it was 2019, could not over the president, could not member she was at [facility] but knew she was in [place] LABORATORY DATA: Please see below. IMAGIN04/13/2021 chest x-ray: "IMPRESSION: No acute cardiopulmonary process appreciated." 04/13/[address]: "IMPRESSION: No acute intracranial pathology is appreciated. Chronic atrophic and micro-ischemic changes." ACTIVITY: As tolerated DIET: As tolerated DISCHARGE PLAN: Home DISCHARGE INSTRUCTIONS: 1. Please follow up with primary care in the next 7 days, please remain compliant with treatment regimen and return to the emergency department if symptoms worsen. Please complete your treatment course of prednisone and antibiotic therapy (cefdinir). DISCHARGE CONDITION: Stable. TIME SPENT ON DISCHARGE: 33 minutes. Vital Signs/I&Os Vital Signs Date Time Temp Pulse Resp B/P (MAP) Pulse Ox O2 Delivery O2 Flow Rate FiO2 04/16/21 06:00 98.2 69 18 131/59 (83) 93 Room Air 04/14/21 15:41 2.0 I&O- Last 24 Hours up to 6 AM 04/16/21 06:00 Intake Total 1380 ml Output Total 660 ml Balance 720 ml Laboratory Data Labs 24H Laboratory Tests 2 04/15/21 12:27: Bedside Glucose (Misc Panel) 138H 04/15/21 17:20: Bedside Glucose (Misc Panel) 150H 04/15/21 20:36: Bedside Glucose (Misc Panel) 152H 04/16/21 06:09: Immature Granulocyte % (Auto) 0.8, Neutrophils (%) (Auto) 83.0H, Lymphocytes (%) (Auto) 9.6L, Monocytes (%) (Auto) 5.9, Eosinophils (%) (Auto) 0.6, Basophils (%) (Auto) 0.1, Neutrophils # (Auto) 6.6, Lymphocytes # (Auto) 0.8L, Monocytes # (Auto) 0.5, Eosinophils # (Auto) 0.1, Basophils # (Auto) 0.0, Nucleated Red Blood Cells % (auto) 0.0, Anion Gap 6L, Glomerular Filtration Rate 47.0, Calcium Level 8.3L 04/16/21 06:26: Bedside Glucose (Misc Panel) 92 CBC/BMP Laboratory Tests 04/16/21 06:09 FSBS Laboratory Tests Test 04/15/21 12:27 04/15/21 17:20 04/15/21 20:36 04/16/21 06:26 Range/Units Bedside Glucose (Misc Panel) 138 150 152 92 83-110 MG/DL Microbiology Microbiology 04/13/21 Urine Culture - Final, Complete Klebsiella Pneumoniae 04/13/21 Blood Culture - Preliminary, Resulted No Growth after 48 hours. All Specime... 04/13/21 Respiratory Virus Panel (PCR) ([facility]) - Final, Complete 04/13/21 Blood Culture - Preliminary, Resulted No Growth after 48 hours. All Specime... Discharge Medications Scheduled Benztropine Mesylate (Benztropine Mesylate) 0.5 Mg Tablet, 0.5 MG PO DAILY, (Reported) Cefdinir (Cefdinir) 300 Mg Capsule, 1 CAP PO BID Escitalopram Oxalate (Lexapro) 20 Mg Tablet, 20 MG PO DAILY, (Reported) Fenofibrate,Micronized (Fenofibrate) 200 Mg Capsule, 200 MG PO DAILY, (Reported) Gabapentin (Gabapentin) 300 Mg Capsule, 300 MG PO BID, (Reported) Losartan Potassium (Losartan Potassium) 100 Mg Tablet, 100 MG PO QHS, (Reported) Metformin HCl (Metformin HCl ER) 500 Mg Tab.er.24h, 500 MG PO BID, (Reported) Metoprolol Succinate (Metoprolol Succinate) 100 Mg Tab.er.24h, 100 MG PO DAILY, (Reported) Oxybutynin Chloride (Oxybutynin Chloride ER) 10 Mg Tab.er.24, 10 MG PO DAILY, (Reported) Potassium Chloride (Potassium Chloride) 20 Meq Tablet.er, 20 MEQ PO DAILY, (Reported) Prednisone (Prednisone) 20 Mg Tablet, 20 MG PO DAILY Ramelteon (Rozerem) 8 Mg Tablet, 8 MG PO QHS, (Reported) Rivaroxaban (Xarelto) 10 Mg Tablet, 10 MG PO DAILY, (Reported) Ropinirole HCl (Ropinirole HCl) 0.5 Mg Tablet, 0.5 MG PO BID, (Reported) Rosuvastatin Calcium (Rosuvastatin Calcium) 20 Mg Tablet, 20 MG PO QHS, (Reported) Trazodone HCl (Trazodone HCl) 100 Mg Tablet, 100 MG PO QHS, (Reported) Umeclidinium Brm/Vilanterol Tr (Anoro Ellipta 62.5-25 Mcg INH) 1 Each Blst.w.dev, 1 PUFF INH DAILY, (Reported) Scheduled PRN Albuterol Sulfate (Ventolin Hfa) 18 Gm Hfa.aer.ad, 2 PUFF INH Q6HP PRN for SHORTNESS OF BREATH Alprazolam (Alprazolam) 0.25 Mg Tablet, 0.25 MG PO BID PRN for ANXIETY, (Reported) Allergies Coded Allergies: No Known Allergies (Unverified , 11/06/18) GME ATTESTATION GME ATTESTATION My faculty preceptor for this patient encounter was physically present during the encounter and was fully available. All aspects of the patient interview, examination, medical decision making process, and medical care plan development were reviewed and approved by the faculty preceptor. The faculty preceptor is aware and concurs with the plan as stated in the body of this note and will attest to such by his/her cosignature. ATTENDING NOTE I, Aneesh Judd, have independently examined this patient and performed my own physical exam, as well as reviewed the documentation and edited where necessary with the resident. For medical students we have performed the physical exam together and discussed medical decision making and I have verified the history. I have discussed in detail with the resident / student the findings and plan of treatment as documented by the resident / student and edited their note. I agree with their findings and treatment plan and have edited their documentation. I will continue to follow the patient during this hospital stay. Time spent on discharge 35 minutes JEFF KERN DO Apr 16, 2021 09:35 ANEESH JUDD MD Apr 16, 2021 11:08
== END 2021-04-16 11:46 | disposition home or self-care (01) | DRG 689 ==
LOC: EDBD 17:36 → M ED 17:36 → M ED INP 22:51 → M PCU 23:12 → M MSPAV 04-14 15:24
PROVIDERS: ADMIT Internal Medicine; ATTEND Internal Medicine
DX: N39.0 Urinary tract infection, site not specified (principal); G93.41 Metabolic encephalopathy; J44.1 Chronic obstructive pulmonary disease with (acute) exacerbation; N17.9 Acute kidney failure, unspecified; B96.1 Klebsiella pneumoniae [K. pneumoniae] as the cause of diseases classified elsewhere; E11.9 Type 2 diabetes mellitus without complications; I10 Essential (primary) hypertension; Z86.711 Personal history of pulmonary embolism; G25.81 Restless legs syndrome; F41.9 Anxiety disorder, unspecified; Z20.822 Contact with and (suspected) exposure to COVID-19; Z79.84 Long term (current) use of oral hypoglycemic drugs; Z79.899 Other long term (current) drug therapy; Z87.891 Personal history of nicotine dependence

== ENCOUNTER → 2022-01-19 | Outpatient (CLI) | payer MEDICARE ==
[~2022-01-19] MED LIST changes: +ALPR0.25 PO; +ANOR1AER INH; +BENZ0.5T23 PO; +CEFD300C41 PO; +FENO200C19 PO; +GABA-282 PO; +LEXA1TAB2 PO; +LOSA100T45 PO; +METF-838 PO; +METO1TAB33 PO; +OXYB10TA23 PO; +POTA1TAB14 PO; +PRED20TA PO; +ROPI0.5T3 PO; +ROSU20TA5 PO; +ROZE8TAB16 PO; +TRAZ-189 PO; +VENTAER INH; +XARE10TA PO
== END ==
LOC: M RAD 12:57
PROVIDERS: ATTEND Physician Assistant
DX: R41.0 Disorientation, unspecified (principal); M54.12 Radiculopathy, cervical region; R29.6 Repeated falls

== ENCOUNTER 2022-01-31 09:58 | Inpatient (IN) | payer MEDICARE ==
[~2022-01-31] VITALS: Ht 154.9 cm; Wt 76.3 kg
[2022-01-31 11:02] LABS: VENOUS BASE EXCESS -4.9 (-2.0-2.0); VENOUS O2 SATURATION 86.6 % (60.0-80.0); VENOUS PARTIAL PRESSURE O2 52.2 mmHg (30.0-50.0); VENOUS PH 7.351 UNITS (7.330-7.430); VENOUS STANDARD HCO3 20.2 MEQ/L; VENOUS TOTAL CO2 21.2 MEQ/L (24.0-28.0)
[2022-01-31 11:11] LABS: BASO # 0.1 10^3/uL (0.0-0.2); BASO % 0.4 % (0.0-1.0); EOS # 0.2 10^3/uL (0.0-0.5); EOS % 1.8 % (0.0-3.0); HEMATOCRIT 39.3 % (36.0-47.0); HEMOGLOBIN 13.4 g/dl (12.0-15.5); LYMPH # 1.7 10^3/uL (1.5-5.0); LYMPH % 13.6 % (24.0-44.0); MEAN CORPUSCULAR HEMOGLOBIN 31.5 pg (27.0-33.0); MEAN CORPUSCULAR HGB CONC 34.1 g/dl (32.0-36.5); MEAN CORPUSCULAR VOLUME 92.5 fl (80.0-96.0); MONO # 0.6 10^3/uL (0.0-0.8); NEUTROPHILS # 9.8 10^3/uL (1.5-8.5); NEUTROPHILS % 78.3 % (36.0-66.0); PLATELET COUNT, AUTOMATED 442 10^3/uL (150-450); RED BLOOD COUNT 4.25 10^6/uL (4.00-5.40); WHITE BLOOD COUNT 12.6 10^3/uL (4.0-10.0)
[2022-01-31 11:41] LABS: RSV AMPLIFICATION NEGATIVE (NEGATIVE)
[2022-01-31 12:38] LABS: ALBUMIN 3.2 GM/DL (3.2-5.2); BILIRUBIN,DIRECT 0.2 MG/DL (0.0-0.2); BILIRUBIN,TOTAL 0.4 MG/DL (0.2-1.0); CALCIUM LEVEL 10.1 MG/DL (8.8-10.2); CREATININE FOR GFR 2.94 MG/DL (0.55-1.30); GLOMERULAR FILTRATION RATE 16.4 (>32); POTASSIUM SERUM 3.7 MEQ/L (3.5-5.1); THYROID STIMULATING HORMONE 1.98 uIU/ML (0.358-3.740); TOTAL PROTEIN 7.7 GM/DL (6.4-8.2)
[2022-01-31] MEDS ORDERED: cefTRIAXone SOD 2 GM in D5W MINI-BAG PLUS 50 ML IV ONE (13:20)
[2022-01-31] MEDS ORDERED: NS 1,000 ML IV SCH (13:20)
[2022-01-31] MEDS ORDERED: FURO20TA2 PO (14:32)
[2022-01-31] MEDS ORDERED: OXYB15TA14 PO (14:32)
[2022-01-31] MEDS ORDERED: HOME MED LIST COMPLETE! XX SCH (14:35)
[2022-01-31] MEDS ORDERED: HEPARIN SOD (PORCINE) 5000UNITS/ML 1ML VIAL/SYRINGE SC SCH (14:45)
[2022-01-31] MEDS ORDERED: NS 1,000 ML IV ONE (14:50)
[2022-01-31] MEDS ORDERED: GABAPENTIN 300 MG CAP PO SCH (16:00)
[2022-01-31] MEDS: NS 1,000 ML IV SCH (17:02)
[2022-01-31] MEDS: GABAPENTIN 100 MG CAP PO SCH ×2 (17:05→20:14)
[2022-01-31] MEDS: rOPINIRole 0.25 MG TAB(REQUIP) PO SCH ×2 (17:38→21:00)
[2022-01-31] MEDS: ROSUVASTATIN 10 MG TAB (CRESTOR) PO SCH (20:14)
[2022-01-31] MEDS: traZODone 100 MG TAB PO SCH (20:14)
[2022-01-31] MEDS: APIXABAN 2.5 MG TAB (ELIQUIS) PO SCH (20:14)
[2022-01-31] MEDS: RAMELTEON 8 MG TAB (ROZEREM) PO SCH (20:15)
[2022-01-31] MEDS ORDERED: LOSARTAN 50MG TABLET PO SCH (21:00)
[2022-02-01 00:42] VITALS: BP 132/61
[2022-02-01 03:29] LABS: CREATININE,RANDOM URINE 89.4 MG/DL
[2022-02-01 06:00] VITALS: BP 111/47
[2022-02-01 06:53] LABS: ALBUMIN 2.7 GM/DL (3.2-5.2); BILIRUBIN,TOTAL 0.3 MG/DL (0.2-1.0); CALCIUM LEVEL 9.1 MG/DL (8.8-10.2); CREATININE FOR GFR 2.59 MG/DL (0.55-1.30); GLOMERULAR FILTRATION RATE 18.9 (>32); POTASSIUM SERUM 3.7 MEQ/L (3.5-5.1); TOTAL PROTEIN 6.4 GM/DL (6.4-8.2)
[2022-02-01] MEDS: NS 1,000 ML IV SCH ×2 (07:45→14:31)
[2022-02-01] MEDS ORDERED: RIVAROXABAN 10MG TAB (XARELTO) PO SCH (09:00)
[2022-02-01] MEDS: rOPINIRole 0.25 MG TAB(REQUIP) PO SCH ×3 (09:27→20:26)
[2022-02-01] MEDS: ESCITALOPRAM OXALATE 10 MG TAB (LEXAPRO) PO SCH (09:27)
[2022-02-01] MEDS: APIXABAN 2.5 MG TAB (ELIQUIS) PO SCH ×2 (09:27→20:26)
[2022-02-01] MEDS: GABAPENTIN 100 MG CAP PO SCH ×3 (09:27→20:26)
[2022-02-01] MEDS: METOPROLOL SUCC (TopROL XL) 100MG *XL* TAB PO SCH (09:28)
[2022-02-01] MEDS: NYSTATIN 100,000 UNITS/GM TOPICAL PWD 15 GM TOP SCH ×2 (09:36→20:26)
[2022-02-01 10:00] VITALS: BP 121/59
[2022-02-01 14:00] VITALS: BP 116/60
[2022-02-01] MEDS ORDERED: cefTRIAXone SOD 2 GM in D5W MINI-BAG PLUS 50 ML IV SCH (14:00)
[2022-02-01 20:00] VITALS: BP 111/58
[2022-02-01] MEDS: RAMELTEON 8 MG TAB (ROZEREM) PO SCH (20:26)
[2022-02-01] MEDS: traZODone 100 MG TAB PO SCH (20:26)
[2022-02-01] MEDS: ROSUVASTATIN 10 MG TAB (CRESTOR) PO SCH (20:26)
[2022-02-02 02:00] VITALS: BP 105/53
[2022-02-02] MEDS: NS 1,000 ML IV SCH (04:34)
[2022-02-02 06:00] VITALS: BP 106/54
[2022-02-02] MEDS: rOPINIRole 0.25 MG TAB(REQUIP) PO SCH (07:29)
[2022-02-02] MEDS: NYSTATIN 100,000 UNITS/GM TOPICAL PWD 15 GM TOP SCH (07:30)
[2022-02-02] MEDS: GABAPENTIN 100 MG CAP PO SCH (07:30)
[2022-02-02] MEDS: ESCITALOPRAM OXALATE 10 MG TAB (LEXAPRO) PO SCH (07:30)
[2022-02-02] MEDS: APIXABAN 2.5 MG TAB (ELIQUIS) PO SCH (07:30)
[2022-02-02 07:32] VITALS: BP 113/69
[2022-02-02] MEDS: METOPROLOL SUCC (TopROL XL) 100MG *XL* TAB PO SCH (07:32)
[2022-02-02 08:00] LABS: BASO # 0.1 10^3/uL (0.0-0.2); BASO % 0.8 % (0.0-1.0); EOS # 0.3 10^3/uL (0.0-0.5); EOS % 4.1 % (0.0-3.0); HEMATOCRIT 32.6 % (36.0-47.0); LYMPH # 1.4 10^3/uL (1.5-5.0); LYMPH % 16.9 % (24.0-44.0); MEAN CORPUSCULAR HEMOGLOBIN 31.4 pg (27.0-33.0); MEAN CORPUSCULAR HGB CONC 33.1 g/dl (32.0-36.5); MEAN CORPUSCULAR VOLUME 94.8 fl (80.0-96.0); MONO # 0.4 10^3/uL (0.0-0.8); MONO % 5.1 % (2.0-8.0); PLATELET COUNT, AUTOMATED 359 10^3/uL (150-450); RED BLOOD COUNT 3.44 10^6/uL (4.00-5.40); WHITE BLOOD COUNT 8.3 10^3/uL (4.0-10.0)
[2022-02-02 08:09] LABS: HEMOGLOBIN 10.8 g/dl (12.0-15.5)
[2022-02-02 08:44] LABS: CALCIUM LEVEL 8.8 MG/DL (8.8-10.2); CREATININE FOR GFR 2.32 MG/DL (0.55-1.30); GLOMERULAR FILTRATION RATE 21.5 (>32); POTASSIUM SERUM 3.8 MEQ/L (3.5-5.1)
[2022-02-02] MEDS ORDERED: CEFD300C41 PO (10:28)
[2022-02-02] MEDS ORDERED: ELIQ2.5T PO (10:28)
[2022-02-02] MEDS ORDERED: GABA-282 PO (10:28)
== END 2022-02-02 11:20 | disposition home health service (06) | DRG 689 ==
LOC: M ED 09:58 → M ED INP 09:59 → ENRESERV 23:25 → M MSPAV 02-01 00:38 → OBSVTOIN 02-02 07:01
PROVIDERS: ADMIT Internal Medicine; ATTEND Internal Medicine Nephrology
DX: N39.0 Urinary tract infection, site not specified (principal); G93.41 Metabolic encephalopathy; N17.9 Acute kidney failure, unspecified; B96.4 Proteus (mirabilis) (morganii) as the cause of diseases classified elsewhere; Z86.711 Personal history of pulmonary embolism; Z79.01 Long term (current) use of anticoagulants; I10 Essential (primary) hypertension; E11.9 Type 2 diabetes mellitus without complications; E78.5 Hyperlipidemia, unspecified; G30.9 Alzheimer's disease, unspecified; F02.80 Dementia in other diseases classified elsewhere, unspecified severity, without behavioral disturbance, psychotic disturbance, mood disturbance, and anxiety; D72.829 Elevated white blood cell count, unspecified; G89.29 Other chronic pain; F32.A Depression, unspecified; F41.9 Anxiety disorder, unspecified; G25.81 Restless legs syndrome; R32 Unspecified urinary incontinence; Z79.84 Long term (current) use of oral hypoglycemic drugs; Z79.899 Other long term (current) drug therapy; Z66 Do not resuscitate; Z20.822 Contact with and (suspected) exposure to COVID-19

== ENCOUNTER → 2022-03-02 | Outpatient (REF) | payer MEDICARE ==
[~2022-03-02] MED LIST changes: +ELIQ2.5T PO; +FURO20TA2 PO; +OXYB15TA14 PO
[2022-03-02 15:40] LABS: APPEARANCE, URINE MANUAL CLOUDY (CLEAR); COLOR, URINE MANUAL LT YELLOW (YELLOW)
[2022-03-02 15:42] LABS: BILIRUBIN, URINE MANUAL NEGATIVE (NEGATIVE); BLOOD URINE MANUAL POSITIVE (NEGATIVE); GLUCOSE, URINE (UA) MANUAL NEGATIVE (NEGATIVE); KETONE, URINE MANUAL NEGATIVE (NEGATIVE); LEUKOCYTE ESTERASE, URINE MAN POSITIVE (NEGATIVE); NITRITE, URINE MANUAL NEGATIVE (NEGATIVE); PROTEIN, URINE MANUAL 1+ mg/dL (NEGATIVE); UROBILINOGEN, URINE MANUAL NORMAL (NORMAL)
[2022-03-02 16:05] LABS: BACTERIA, URINE LARGE AMOUNT; HYALINE CAST, URINE NONE SEEN /lpf (0-1); SQUAMOUS EPITHELIAL CELL URINE SMALL AMOUNT /hpf (SMALL AMT); WBC, URINE TNTC /hpf (0-3)
== END ==
LOC: M SMT 12:38
PROVIDERS: ATTEND Physician Assistant
DX: N30.00 Acute cystitis without hematuria (principal)

== ENCOUNTER → 2022-03-02 | Outpatient (CLI) | payer MEDICARE ==
[2022-03-02 18:40] LABS: CALCIUM LEVEL 9.3 MG/DL (8.8-10.2); CREATININE FOR GFR 1.86 MG/DL (0.55-1.30); GLOMERULAR FILTRATION RATE 27.8 (>32); POTASSIUM SERUM 4.8 MEQ/L (3.5-5.1)
== END ==
LOC: M PLALAB 14:58
PROVIDERS: ATTEND Physician Assistant
DX: N13.30 Unspecified hydronephrosis (principal)

== ENCOUNTER 2023-05-24 11:37 | Emergency (ER) | payer MEDICARE ==
[~2023-05-24] VITALS: Ht 165.1 cm; Wt 88.7 kg
[~2023-05-24 11:37] MED LIST changes: +BENZ0.5T2 PO; -BENZ0.5T23 PO; +CEFD1CAP9 PO; -CEFD300C41 PO; -FENO200C19 PO; +FENO200C24 PO; -LOSA100T45 PO; +LOSA100T46 PO; +POTA-298 PO; -POTA1TAB14 PO; -ROPI0.5T3 PO; +ROPI0.5T33 PO; -ROSU20TA5 PO; +ROSU20TA61 PO
[2023-05-24] MEDS ORDERED: NS 500 ML IV ONE (11:55)
[2023-05-24] MEDS ORDERED: methylPREDNISolone 125MG 2ML VIAL IV ONE (11:55)
[2023-05-24] MEDS: IPRATROPIUM 0.5MG/ALBUTEROL 2.5MG INH SOL UD 3ML (DUONEB) NEB PRN ×3 (12:16→12:34)
[2023-05-24] MEDS ORDERED: ACETAMINOPHEN TAB 650MG DOSE (2X325MG) PO ONE (12:35)
[2023-05-24 12:44] LABS: ABG BASE EXCESS -0.1 (-2.0-2.0); ABG HCO3 26.2 MMOL/L (22.0-26.0); ABG O2 SATURATION 94.7 % (95.0-99.0); ABG PARTIAL PRESSURE CO2 49.2 mmHg (35.0-45.0); ABG PARTIAL PRESSURE O2 80.9 mmHg (75.0-100.0); ABG STANDARD HCO3 24.3 MMOL/L. (22.0-26.0); ABG TOTAL CO2 27.7 MMOL/L (23.0-31.0); ABG pH (ARTERIAL) 7.344 UNITS (7.350-7.450)
[2023-05-24 12:45] LABS: CPK CREATINE PHOSPHOKINASE 131 U/L (34-145)
[2023-05-24 12:50] LABS: ALBUMIN 2.6 G/DL (3.2-5.2); ALKALINE PHOSPHATASE 55 U/L (46-116); ALT/SGPT 212 U/L (7.0-40); AST/SGOT 707 U/L (<34); BILIRUBIN,DIRECT 0.3 MG/DL (<0.4); BILIRUBIN,TOTAL 0.5 MG/DL (0.3-1.2); BLOOD UREA NITROGEN 43 MG/DL (9-23); CALCIUM LEVEL 7.8 MG/DL (8.3-10.6); CARBON DIOXIDE LEVEL 27 MMOL/L (20-31); CHLORIDE LEVEL 101 MMOL/L (98-107); CK-MB VALUE MASS < 1.0 NG/ML (<3.6); CREATININE FOR GFR 2.65 MG/DL (0.55-1.30); GLOMERULAR FILTRATION RATE 18.4 (>32); GLUCOSE, FASTING 142 MG/DL (74-106); MB/CK RELATIVE INDEX 0.76 (< OR =4); POTASSIUM SERUM 4.2 MMOL/L (3.5-5.1); SODIUM LEVEL 137 MMOL/L (136-145); THYROID STIMULATING HORMONE 3.624 uIU/ML (0.55-4.78)
[2023-05-24] MEDS ORDERED: ASPIRIN 81MG CHEW TABLET PO ONE (13:00)
[2023-05-24 13:15] LABS: BASO % 0.2 % (0.0-1.0); HEMATOCRIT 43.6 % (36.0-47.0); HEMOGLOBIN 13.8 g/dl (12.0-15.5); LYMPH # 1.2 10^3/uL (1.5-5.0); LYMPH % 14.3 % (24.0-44.0); MEAN CORPUSCULAR HEMOGLOBIN 31.6 pg (27.0-33.0); MEAN CORPUSCULAR HGB CONC 31.7 g/dl (32.0-36.5); MEAN CORPUSCULAR VOLUME 99.8 fl (80.0-96.0); MONO # 0.4 10^3/uL (0.0-0.8); MONO % 4.6 % (2.0-8.0); NEUTROPHILS # 6.5 10^3/uL (1.5-8.5); NEUTROPHILS % 79.8 % (36.0-66.0); PLATELET COUNT, AUTOMATED 175 10^3/uL (150-450); RED BLOOD COUNT 4.37 10^6/uL (4.00-5.40); WHITE BLOOD COUNT 8.1 10^3/uL (4.0-10.0)
[2023-05-24] MEDS ORDERED: OSELTAMIVIR PHOSPHATE 30MG CAPSULE PO ONE (13:30)
[2023-05-24] MEDS ORDERED: HEPARIN DRIP 25,000 UNITS in IV 1 EA IV SCH ×2 (15:55→16:50)
[2023-05-24] MEDS ORDERED: HEPARIN SOD (PORCINE) 5000UNITS/ML 1ML VIAL/SYRINGE IV PRN (15:55)
[2023-05-24 16:43] VITALS: TEMP 97.2
[2023-05-24 16:56] VITALS: BP 97/56; O2SAT 94
== END 2023-05-24 17:15 | disposition short-term general hospital (02) ==
LOC: EDBD 11:37 → M ED 11:37
DX: I21.4 Non-ST elevation (NSTEMI) myocardial infarction (principal); J09.X9 Influenza due to identified novel influenza A virus with other manifestations; J44.9 Chronic obstructive pulmonary disease, unspecified; E11.9 Type 2 diabetes mellitus without complications; F41.9 Anxiety disorder, unspecified; Z79.01 Long term (current) use of anticoagulants; Z79.891 Long term (current) use of opiate analgesic; Z79.899 Other long term (current) drug therapy
CPT/HCPCS: 36600; 70450; 71045; 80048; 80076; 82550; 82553; 82803; 83605; 83880; 84436; 84443; 84484; 85025; 87040; 87486; 87581; 87633; 87798; 93005; 93041; 94640; 94760; 96361; 96374; 96375; 99285; J2930

== ENCOUNTER → 2023-07-06 | Outpatient (REF) | payer MEDICARE ==
[2023-07-06 08:27] LABS: CHOLESTEROL RISK RATIO 3.21 (<5); HDL CHOLESTEROL 47.6 MG/DL (>40); LDL CHOLESTEROL 72.8 MG/DL (<100); NON-HDL-C 105.4 MG/DL
[2023-07-06 08:29] LABS: PTH INTACT 118.6 PG/ML (18.5-88.0)
[2023-07-06 08:30] LABS: TOTAL 25(OH) VITAMIN D 41.2 NG/ML (20.0-100.0)
[2023-07-06 08:43] LABS: HEMOGLOBIN A1c 5.7 % (4.0-6.0)
[2023-07-06 13:13] LABS: ALBUMIN 2.7 G/DL (3.2-5.2); BILIRUBIN,TOTAL 0.5 MG/DL (0.3-1.2); CALCIUM LEVEL 8.6 MG/DL (8.3-10.6); CREATININE FOR GFR 2.16 MG/DL (0.55-1.30); GLOMERULAR FILTRATION RATE 23.2 (>32); POTASSIUM SERUM 4.4 MMOL/L (3.5-5.1); TOTAL PROTEIN 5.4 G/DL (5.7-8.2)
== END ==
LOC: SKLAB6 06:49
PROVIDERS: ATTEND Internal Medicine
DX: N18.4 Chronic kidney disease, stage 4 (severe) (principal); E78.5 Hyperlipidemia, unspecified; Z79.899 Other long term (current) drug therapy

== ENCOUNTER 2024-06-12 06:38 | Observation (INO) | payer MEDICARE ==
[~2024-06-12] VITALS: Ht 157.5 cm; Wt 84.0 kg
[~2024-06-12 06:38] MED LIST changes: +GABA-1172 PO; -GABA-282 PO; -ROSU20TA61 PO; +ROSU20TA86 PO
[2024-06-12] MEDS: MORPHINE 4 MG/ML 1ML VIAL IV PRN ×3 (07:02→14:32)
[2024-06-12 07:05] LABS: BASO # 0.1 10^3/uL (0.0-0.2); BASO % 0.3 % (0.0-1.0); HEMATOCRIT 46.2 % (36.0-47.0); HEMOGLOBIN 15.1 g/dl (12.0-15.5); LYMPH % 3.1 % (24.0-44.0); MEAN CORPUSCULAR HEMOGLOBIN 32.8 pg (27.0-33.0); MEAN CORPUSCULAR HGB CONC 32.7 g/dl (32.0-36.5); MEAN CORPUSCULAR VOLUME 100.4 fl (80.0-96.0); MONO # 1.4 10^3/uL (0.0-0.8); MONO % 4.5 % (2.0-8.0); NEUTROPHILS # 28.5 10^3/uL (1.5-8.5); NEUTROPHILS % 89.6 % (36.0-66.0); PLATELET COUNT, AUTOMATED 309 10^3/uL (150-450)
[2024-06-12] MEDS: ONDANSETRON 4MG 2ML VIAL IV ONE (07:16)
[2024-06-12 07:43] LABS: WHITE BLOOD COUNT 31.8 10^3/uL (4.0-10.0)
[2024-06-12 08:20] LABS: INR 1.17; PROTHROMBIN TIME 15.2 SECONDS (12.5-14.5)
[2024-06-12 08:47] LABS: ALBUMIN 3.3 G/DL (3.2-5.2); BILIRUBIN,DIRECT 0.2 MG/DL (<0.4); BILIRUBIN,TOTAL 0.4 MG/DL (0.3-1.2); CK-MB VALUE MASS 5.6 NG/ML (<3.6); CREATININE FOR GFR 2.42 MG/DL (0.55-1.30); GLOMERULAR FILTRATION RATE 20.3 (>32); MB/CK RELATIVE INDEX 2.1 (< OR =4); POTASSIUM SERUM 2.9 MMOL/L (3.5-5.1); TOTAL PROTEIN 7.7 G/DL (5.7-8.2)
[2024-06-12 08:51] LABS: SOURCE PERIPHERAL SMEAR
[2024-06-12 09:15] LABS: ABG BASE EXCESS -5.5 (-2.0-2.0); ABG HCO3 18.5 MMOL/L (22.0-26.0); ABG O2 SATURATION 90.5 % (95.0-99.0); ABG PARTIAL PRESSURE CO2 32.5 mmHg (35.0-45.0); ABG PARTIAL PRESSURE O2 59.9 mmHg (75.0-100.0); ABG STANDARD HCO3 19.9 MMOL/L. (22.0-26.0); ABG TOTAL CO2 19.5 MMOL/L (23.0-31.0); ABG pH (ARTERIAL) 7.374 UNITS (7.350-7.450)
[2024-06-12 09:51] LABS: AMORPHOUS SEDIMENT SMALL (NEGATIVE); APPEARANCE, URINE TURBID (CLEAR); BACTERIA, URINE AUTO 3+ (NEGATIVE); BILIRUBIN, URINE AUTO NEGATIVE (NEGATIVE); BLOOD, URINE BLOOD 2+ (NEGATIVE); COLOR, URINE AMBER (YELLOW); GLUCOSE, URINE (UA) AUTO 2+ mg/dL (NEGATIVE); KETONE, URINE AUTO NEGATIVE (NEGATIVE); LEUKOCYTE ESTERASE, URINE AUTO 2+ (NEGATIVE); MUCUS, URINE SMALL (NEGATIVE); NITRITE, URINE AUTO NEGATIVE (NEGATIVE); PROTEIN, URINE AUTO 2+ mg/dL (NEGATIVE); RBC, URINE AUTO 3 /HPF (0-3); SPECIFIC GRAVITY URINE AUTO 1.016 (1.002-1.035); SQUAMOUS EPITHELIAL CELL UR AU 8 /HPF (0-6); UROBILINOGEN, URINE AUTO 0.2 mg/dL (0.0-2.0); WBC, URINE AUTO 96 /HPF (0-3)
[2024-06-12] MEDS: NS 0.9% IV ONE (10:13)
[2024-06-12] MEDS: [UNRECOGNIZED DRUG - OTHER] IV ONE (10:13)
[2024-06-12] MEDS: PIPERACILLIN/TAZOBACTAM SOD 4.5 GM in DEXTROSE 5% (D5W) ADV/MINI-BAG 50 ML IV ONE (10:19)
[2024-06-12] MEDS ORDERED: ATROPINE SULFATE 1% OPHTH SOLN 2ML BTL SL PRN (11:45)
[2024-06-12] MEDS ORDERED: HYOSCYAMINE SULFATE 0.125 MG SUBL TABLET PO PRN (11:45)
[2024-06-12] MEDS ORDERED: MORPHINE 10MG/0.5ML ORAL CONCENTRATE SOLUTION U/D SL PRN (11:45)
[2024-06-12] MEDS ORDERED: LORazepam 2 MG/ML 1ML VIAL IV PRN (11:45)
[2024-06-12] MEDS: ONDANSETRON 4MG 2ML VIAL IV PRN (12:36)
[2024-06-12 14:32] VITALS: BP 132/62; TEMP 98.1; O2SAT 91
[2024-06-12] MEDS: MORPHINE 10MG/0.5ML ORAL CONCENTRATE SOLUTION U/D SL PRN (15:38)
[2024-06-12] MEDS: LORazepam 1 MG TAB PO PRN (16:52)
== END 2024-06-13 00:30 | disposition expired ==
LOC: M ED 06:38 → M ED INP 06:39 → M MSPAV 15:50
PROVIDERS: ADMIT Internal Medicine; ATTEND Internal Medicine
DX: A41.9 Sepsis, unspecified organism (principal); Z66 Do not resuscitate; F03.90 Unspecified dementia, unspecified severity, without behavioral disturbance, psychotic disturbance, mood disturbance, and anxiety; E11.22 Type 2 diabetes mellitus with diabetic chronic kidney disease; I12.9 Hypertensive chronic kidney disease with stage 1 through stage 4 chronic kidney disease, or unspecified chronic kidney disease; E78.5 Hyperlipidemia, unspecified; G25.81 Restless legs syndrome; Z86.718 Personal history of other venous thrombosis and embolism; F32.A Depression, unspecified; E87.20 Acidosis, unspecified; K55.069 Acute infarction of intestine, part and extent unspecified; N18.9 Chronic kidney disease, unspecified; N17.9 Acute kidney failure, unspecified; Z51.5 Encounter for palliative care; R65.21 Severe sepsis with septic shock; K83.8 Other specified diseases of biliary tract; I46.9 Cardiac arrest, cause unspecified; R91.8 Other nonspecific abnormal finding of lung field; Z79.01 Long term (current) use of anticoagulants; Z79.899 Other long term (current) drug therapy
CPT/HCPCS: 36415; 36600; 51701; 71045; 71250; 74176; 80047; 80053; 80503; 81001; 82248; 82550; 82553; 82803; 83605; 83690; 84484; 85025; 85610; 87040; 87088; 87186; 87486; 87581; 87633; 87798; 93005; 93041; 94760; 96374; 96375; 96376; 99285; G0378; J2405; J2543